=== PATIENT | female | born 1990 | race Caucasian/White ===

== ENCOUNTER 2017-11-25 10:58 | Emergency (ER) | payer MEDICAID ==
[~2017-11-25] VITALS: Ht 172.7 cm; Wt 96.9 kg
[~2017-11-25 10:58] MED LIST: IBUP-1573 PO
[2017-11-25] MEDS ORDERED: TETanus/Pertussis (Acell)/Diphther VAC/PF (Tdap-Adult) 0.5ml syringe IM ONE (11:50)
[2017-11-25] MEDS ORDERED: DOXY100C43 PO (13:00)
[2017-11-25] MEDS ORDERED: CEPH500C2 PO (13:00)
[2017-11-25 13:20] VITALS: BP 116/70
== END 2017-11-25 13:26 | disposition home or self-care (01) ==
LOC: ER 10:59
DX: L03.115 Cellulitis of right lower limb (principal); G89.29 Other chronic pain; Z90.49 Acquired absence of other specified parts of digestive tract; Z88.0 Allergy status to penicillin; Z88.8 Allergy status to other drugs, medicaments and biological substances; Z79.899 Other long term (current) drug therapy; Z56.0 Unemployment, unspecified
CPT/HCPCS: 73630; 90471; 90715; 99284

== ENCOUNTER 2019-08-02 11:44 | Emergency (ER) | payer MEDICAID ==
[~2019-08-02] VITALS: Ht 172.7 cm; Wt 105.0 kg
[2019-08-02] MEDS ORDERED: acetaminophen 325mg tablet PO ONE (12:50)
[2019-08-02 13:17] LABS: BASOPHILS # (AUTO) 0.1 X10'3 (0-0.2); BASOPHILS % (AUTO) 0.4 % (0-1); EOSINOPHILS # (AUTO) 0.1 X10'3 (0-0.9); EOSINOPHILS % (AUTO) 0.6 % (0-6); HEMATOCRIT 36.8 % (35.0-45.0); HEMOGLOBIN 12.2 g/dl (12.0-16.0); LYMPHOCYTES # (AUTO) 2.1 X10'3 (1.1-4.8); LYMPHOCYTES % (AUTO) 10.7 % (21-51); MEAN CORPUSCULAR HEMOGLOBIN 30.5 PG (27.0-31.0); MEAN CORPUSCULAR HGB CONC 33.2 g/dL (33.0-36.5); MEAN PLATELET VOLUME 7.8 FL (7.4-10.4); MONOCYTES # (AUTO) 1.1 X10'3 (0-0.9); MONOCYTES % (AUTO) 5.6 % (2-12); NEUTROPHILS # (AUTO) 15.9 X10'3 (1.8-7.7); NEUTROPHILS % (AUTO) 82.7 % (42-75); PLATELET COUNT 255 X10'3 (140-440); RED CELL DISTRIBUTION WIDTH 13.5 % (11.5-14.5); WHITE BLOOD COUNT 19.2 X10'3 (4.5-11.0)
[2019-08-02 13:48] LABS: ALANINE AMINOTRANSFERASE 18 U/L (12-78); ALBUMIN 2.5 G/DL (3.4-5.0); ALBUMIN/GLOBULIN RATIO 0.6 (1.1-1.5); ALKALINE PHOSPHATASE 82 IU/L (46-116); ANION GAP 10 (8-16); ASPARTATE AMINO TRANSFERASE 15 U/L (10-37); BILIRUBIN,TOTAL 0.4 MG/DL (0.1-1.0); BLOOD UREA NITROGEN 9 MG/DL (7-18); BUN/CREATININE RATIO 15.5 (6.6-38.0); CALCIUM 8.4 MG/DL (8.5-10.1); CHLORIDE 106 MMOL/L (99-107); CREATININE 0.58 MG/DL (0.40-0.90); GLUCOSE 116 MG/DL (70-104); SODIUM 138 MMOL/L (135-145); TOTAL PROTEIN 6.5 G/DL (6.4-8.2); eGFR > 90 ML/MIN
[2019-08-02 14:05] LABS: CLARITY,URINE SLIGHTLY CLOUDY (Clear); COLOR,URINE YELLOW (Yellow); GLUCOSE, URINE NEGATIVE (Neg); KETONES,URINE NEGATIVE (Neg); LEUKOCYTE ESTERASE ,URINE NEGATIVE (Neg); NITRITES, URINE NEGATIVE (Neg); OCCULT BLOOD,URINE NEGATIVE (Neg); PH,URINE 7.5 (4.8-8.0); PROTEIN,URINE NEGATIVE (Neg); UROBILINOGEN,URINE 0.2 E.U/dL (0.2-1.0)
[2019-08-02 14:06] LABS: URINE HCG POSITIVE (NEG)
[2019-08-02 14:08] LABS: UA COLLECTION TYPE CLN CATCH MIDSTREAM
[2019-08-02 14:12] LABS: SQUAMOUS EPITHELIAL CELL,UR MANY /LPF (FEW)
[2019-08-02 14:15] LABS: AMORPHOUS PHOSPHATES 3+
[2019-08-02 14:16] LABS: BACTERIA,URINE 2+ /HPF (Neg); RBC,URINE 0-2 /HPF (0-2); WBC,URINE 0-4 /HPF (0-4)
--- NOTE | 2019-08-02 18:28 | NUR ---
Patient back from MRI
[2019-08-02] MEDS ORDERED: CefTRIAXone/D5W-Rocephin 1gm 50 ML IV ONE (18:50)
[2019-08-02] MEDS ORDERED: morphine 4 MG/ML inj SYRINge IV ONE ×2 (19:50→20:40)
[2019-08-02 21:26] LABS: GLUCOSE,SYNOVIAL FLUID 10 MG/DL; TOTAL PROTEIN,SYNOVIAL FLUID 4.3 GM/DL
[2019-08-02 21:51] LABS: APPEARANCE,SYNOVIAL FLUID CLOUDY; COLOR,SYNOVIAL FLUID YELLOW
[2019-08-02 21:52] LABS: SYN RBC 50 /CU MM (0); SYN WBC 50075 /CU MM (0-200); SYNOVIAL FLUID CRYSTALS QT NO CRYSTALS SEEN
[2019-08-02 22:04] LABS: LYMPHOCYTES,SYNOVIAL FLUID 10 % (0-75); MONOCYTES,SYNOVIAL FLUID 2 % (0-0); NEUTROPHILS,SYNOVIAL FLUID 88 % (0-25)
[2019-08-02 23:10] VITALS: BP 109/47
== END 2019-08-03 00:22 | disposition short-term general hospital (02) ==
LOC: ER 11:44
DX: O26.892 Other specified pregnancy related conditions, second trimester (principal); M25.552 Pain in left hip; M00.9 Pyogenic arthritis, unspecified; G89.29 Other chronic pain; Z90.49 Acquired absence of other specified parts of digestive tract; Z56.0 Unemployment, unspecified; Z88.0 Allergy status to penicillin; Z91.048 Other nonmedicinal substance allergy status; Z79.899 Other long term (current) drug therapy; Z3A.22 22 weeks gestation of pregnancy
CPT/HCPCS: 20610; 36415; 73721; 80053; 81001; 81025; 82945; 83605; 84145; 84157; 85025; 85651; 86140; 87070; 87075; 87102; 89051; 89060; 96365; 96375; 96376; 99285; J0696; J2270

== ENCOUNTER 2024-12-25 03:27 | Inpatient (IN) | payer MEDICAID ==
[~2024-12-25] VITALS: Ht 157.5 cm; Wt 95.4 kg
--- NOTE | 2024-12-25 04:00 | Physician Documentation ---
History of Present Illness ~ Chief Complaint: Abscess Stated Complaint: LEG INFECTION Time Seen by MD: 03:59 Primary Medical Doctor: Dr. Robledo HPI Patient presents to the emergency room with chronic wound to her posterior left lower extremity that has been going on for the past two years that has gotten worse over the past week. She tried outpatient antibiotics from [facility] but states it only continues to get worse. Tetanus Within 5 Years: Yes Medication Reconciliation Allergies: Coded Allergies: Penicillins (Verified Allergy, Unknown, 08/02/19) adhesive tape (Verified Allergy, Unknown, 02/17/14) Scheduled PRN [Ibuprofen 600], MG PO Q6H PRN for pain, (Reported) Discontinued Medications Ibuprofen (Ibuprofen), 600 MG PO Q6H Discontinued Reason: Other Past Medical History Past Medical History: Chronic Back Pain Past Surgical History: cholecystectomy Alcohol Use: None Drug Use: none Lives In: Home Occupation: unemployed Review of Systems ROS All review of systems negative except as per HPI Physical Exam Vital Signs: Temperature: 98.0, Source: Oral, Heart Rate: 84, Respiratory Rate: 14, BP: 114/56, Pulse Oximetry: 94 General Appearance General: Patient is awake, alert, oriented x4 in no acute distress Head: Normocephalic and atraumatic. Eyes: Conjunctival normal. EOMI. PERRL. ENT: Mucous membranes moist. Neck: Supple, trachea is midline. Chest: Clear to auscultation bilaterally without rales, rhonchi, or wheezes. There is no accessory muscle use or retractions. Cardiac: RRR without murmurs, gallops, or rubs. Extremities: 20 cm x 10 cm ulcer covered with purulent drainage and foul odor behind right lower extremity Progress Results/Orders Results/Orders Orders - ALFONSO COLBERT MD Culture Blood (12/25/24 04:02) Chest,Single View (12/25/24 04:22) Page Hospitalist (12/25/24 05:27) Fill Out Med Reconciliation (12/25/24 05:27) Ct Lower Extremity (12/25/24 05:54) Completed Orders - ALFONSO COLBERT MD Cbc/Diff (12/25/24 04:02) MG (12/25/24 04:02) Chest,Single View (12/25/24 04:22) Procalcitonin (12/25/24 04:02) BMP (12/25/24 04:02) Lacticsepsis (12/25/24 04:02) Ceftriaxone/Q8b-Cpcixket 1gm (Rocephin 1 (12/25/24 04:05) Normal Saline 1000ml (0.9% Sodium Chlori (12/25/24 04:05) Morphine 4mg/Ml Inj. (Morphine Inj.) (12/25/24 04:45) Ondansetron Inj. (Zofran 4mg/2ml Vial) (12/25/24 04:45) ESR (12/25/24 04:50) C-Reactive Protein (12/25/24 04:50) Potassium Cl 40meq/1/2ns 520ml (Potassiu (12/25/24 08:00) Potassium Cl Sr Tablet (K-Dur Tablet) (12/25/24 05:30) Iohexol 300mg/Ml 100ml Inj. (Omnipaque-3 (12/25/24 05:38) Ct Lower Extremity (12/25/24 05:54) Vital Signs 12/25/24 12/25/24 12/25/24 12/25/24 03:30 04:01 04:02 05:50 Temp 98.0 Pulse 84 83 90 Resp 14 19 B/P (MAP) 114/56 106/49 (68) 153/72 (99) Pulse Ox 94 99 90 Laboratory Tests Test 12/25/24 04:41 12/25/24 04:59 White Blood Count 12.0 H Red Blood Count 4.27 Hemoglobin 11.5 L Hematocrit 33.9 L Mean Corpuscular Volume 79.5 Mean Corpuscular Hemoglobin 27.0 Mean Corpuscular Hemoglobin Concent 33.9 Red Cell Distribution Width 15.1 H Platelet Count 385 Mean Platelet Volume 6.6 L Neutrophils (%) (Auto) 71.8 Lymphocytes (%) (Auto) 14.7 L Monocytes (%) (Auto) 10.1 Eosinophils (%) (Auto) 2.4 Basophils (%) (Auto) 1.0 Neutrophils # (Auto) 8.6 H Lymphocytes # (Auto) 1.8 Monocytes # (Auto) 1.2 H Eosinophils # (Auto) 0.3 Basophils # (Auto) 0.1 CBC Comment Erythrocyte Sedimentation Rate 82 H Sodium Level 135 Potassium Level 2.5 *L Chloride Level 98 L Carbon Dioxide Level 21.7 L Anion Gap 15 Blood Urea Nitrogen 33 H Creatinine 1.67 H Estimated GFR/1.73 m2 35 BUN/Creatinine Ratio 19.8 Glucose Level 98 Calcium Level 8.9 Magnesium Level 2.5 H C-Reactive Protein 10.07 H Albumin 2.6 L Procalcitonin 0.05 Chemistry Comments Lactic Acid Level 1.3 Microbiology Date/Time Source Procedure Growth Status 12/25/24 04:38 Blood Iv Draw Blood Culture - Preliminary NEGATIVE (LESS THAN 24 HOURS) Resulted Medical Decision Making Findings Patient presents to the emergency room with infection to her right lower extremity as per HPI. Differentials include but are not limited to cellulitis, abscess, nonhealing wound, sepsis, electrolyte disturbances, dehydration therefore emergent labs and imaging indicated. Emergently low potassium along with evidence of acute kidney injury that has began feeling outpatient treatment patient would benefit from admission. Potassium supplementation and IV fluids has been initiated as well as antibiotics. Dr. Colbert handed this patient's care over to me, Dr. Garcia and requested I consult orthopedics for consultation. 9:30 a.m.: Case discussed with Dr. Higuera. Dr. Higuera recommends consulting Wound Care and if further surgical consultation is needed to give him a call. 9:45 a.m.: Page sent to hospitalist to discuss the above. Departure Admitted to Inpatient Unit: yes, to hospitalist Impression: Primary Impression: Hypokalemia Additional Impressions: Acute kidney failure Wound infection Condition: Guarded Referrals: NO PRIMARY CARE PROVIDER (PCP) Signature Scribe Signature: No scribe Attestation: The note accurately reflects work and decisions made by me.Alfonso Colbert MD 12/25/24 05:47 ALFONSO COLBERT MD Dec 25, 2024 04:00 SRINIVASA GARCIA MD Dec 25, 2024 10:32
[2024-12-25] MEDS ORDERED: vancomycin inj 1,000 MG in normal saline 250ml IV soln 250 ML IV ONE (04:05)
--- NOTE | 2024-12-25 04:33 | RADIOLOGY REPORT ---
CHEST RADIOGRAPH Indication: SEPSIS Technique: Single frontal view of the chest was obtained COMPARISON: None FINDINGS: Lines and Tubes: None Lungs: Clear Pleura: No effusion. No pneumothorax. Cardiomediastinal contours: Unremarkable Bones: Unremarkable IMPRESSION: 1. No acute disease.
[2024-12-25 04:57] LABS: MEAN PLATELET VOLUME 6.6 FL (7.4-10.4); RED CELL DISTRIBUTION WIDTH 15.1 % (11.5-14.5)
[2024-12-25] MEDS: morphine 4 MG/ML inj SYRINge IV ONE (05:04)
[2024-12-25] MEDS: normal saline 1000ml 1,000 ML IV ONE (05:06)
[2024-12-25 05:23] LABS: CREATININE 1.67 MG/DL (0.40-0.90); TOTAL CARBON DIOXIDE 21.7 MMOL/L (24-32); eGFR 35 ML/MIN
[2024-12-25] MEDS ORDERED: iohexol 300mg/ml 100ml inj. ONE (05:38)
[2024-12-25] MEDS: CefTRIAXone/D5W-Rocephin 1gm 50 ML IV ONE (05:38)
[2024-12-25] MEDS: potassium Cl 20 mEq SR tablet PO ONE (05:42)
[2024-12-25] MEDS: ondansetron/PF 4mg/2ml inj IV ONE (05:45)
[2024-12-25] MEDS ORDERED: magnesium sulf-water 4G/100mL 100 ML IV PRN (06:00)
[2024-12-25] MEDS ORDERED: ondansetron/PF 4mg/2ml inj IV PRN (06:00)
[2024-12-25] MEDS ORDERED: potassium Cl 40MEQ/1/2NS 520ml 520 ML IV PRN (06:00)
[2024-12-25] MEDS ORDERED: magnesium Cl slow-release 64mg tablet PO PRN (06:00)
[2024-12-25] MEDS ORDERED: magnesium sulf-water 2g/50mL 50 ML IV PRN (06:00)
[2024-12-25] MEDS ORDERED: mag hydrox/Alum hydrox/simeth 30ml oral suspension PO PRN (06:00)
[2024-12-25] MEDS ORDERED: magnesium hydroxide 30ml (MOM) UD suspension PO PRN (06:00)
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
[2024-12-25] MEDS ORDERED: cefepime 2g/NS 100ml ADVANTAGE 100 ML IV SCH (06:25)
--- NOTE | 2024-12-25 07:07 | RADIOLOGY REPORT ---
INDICATION: Infection, lt leg COMPARISON: None TECHNIQUE: CT of the left lower extremity was performed without contrast. Volume transverse images we re obtained and reconstructed in multiple planes using bone and soft tissue algorithms. Radiation Dose Information: CT Dose: CTDI volume is 14.38 mGy. Dose-length product is 1484.19 mGy*cm FINDINGS: The alignment is normal. The joint spaces are normal. There is no fracture, dislocation or aggressive osseous lesion. There is no joint effusion. Abnormally enlarged left inguinal lymph nodes measure up to 3.5 x 2.2 cm. Extensive tissue irregulari ty within the anterolateral distal left leg. Diffuse soft tissue swelling and edema throughout the lo wer leg. No discrete fluid collection to suggest abscess formation. IMPRESSION: 1. Soft tissue irregularity consistent with ulceration of the anterolateral distal left lower leg wit h associated diffuse soft tissue swelling and edema. No discrete fluid collection to suggest abscess formation. 2. Left inguinal lymphadenopathy. 3. All CT scans at this medical facility are performed using dose modulation techniques as appropriat e to a performed exam including the following:Automated exposure control was utilized; adjustment of the MA and/or KV according to patient size; and use of iterative reconstruction technique.
[2024-12-25] MEDS: HYDROcodone/acetaminophen 5mg/325mg tablet PO PRN (07:25)
[2024-12-25] MEDS: CEFEPIME 2gm in D5W 50mL 50 ML IV SCH (07:27)
[2024-12-25] MEDS: docusate sod 100mg capsule PO SCH (07:29)
[2024-12-25] MEDS: normal saline 1000ml 1,000 ML IV SCH (07:38)
[2024-12-25] MEDS: K and/or MAG REPLACEMENT MC SCH (07:41)
[2024-12-25 08:27] LABS: CREATININE 1.59 MG/DL (0.40-0.90); TOTAL CARBON DIOXIDE 22.0 MMOL/L (24-32); eCRCL 39 ML/MIN; eGFR 37 ML/MIN
[2024-12-25] MEDS: vancomycin/NS 1 GM ADD-VANTAGE 250 ML X 1 DOSE IV SCH (08:47)
[2024-12-25] MEDS: ringers solution, lacted 1,000 ML IV ONE (08:47)
[2024-12-25] MEDS: potassium Cl 40MEQ/1/2NS 520ml 520 ML IV SCH (08:48)
[2024-12-25 09:01] LABS: LEUKOCYTE ESTERASE ,URINE NEGATIVE (Neg); NITRITES, URINE NEGATIVE (Neg); OCCULT BLOOD,URINE NEGATIVE (Neg)
[2024-12-25 09:17] LABS: UA COLLECTION TYPE CLN CATCH MIDSTREAM
[2024-12-25] MEDS ORDERED: IBUPROFEN PO (09:23)
[2024-12-25 09:26] LABS: SQUAMOUS EPITHELIAL CELL,UR MANY /LPF (FEW)
[2024-12-25 09:28] LABS: MUCUS STRANDS FEW /LPF (Neg)
[2024-12-25] MEDS: Potassium Cl inj 40 MEQ in normal saline 500ml IV soln 500 ML IV STA (09:30)
[2024-12-25 09:39] LABS: CREATININE,URINE RANDOM 112.0 MG/DL
[2024-12-25] MEDS: ceFAZolin 2gm/dext,iso 50mL 50 ML IV SCH (09:44)
[2024-12-25] MEDS: ringers solution, lacted 1,000 ML IV SCH (09:46)
[2024-12-25 09:58] LABS: URINE AMPHETAMINE SCREEN POSITIVE (Neg); URINE BARBITUATE SCREEN NEGATIVE (Neg); URINE BENZODIAZEPINES SCREEN NEGATIVE (Neg); URINE CANNABINOID SCREEN NEGATIVE (Neg); URINE COCAINE SCREEN NEGATIVE (Neg); URINE METHADONE SCREEN NEGATIVE (Neg); URINE OPIATE SCREEN POSITIVE (Neg); URINE PHENCYCLIDINE SCREEN NEGATIVE (Neg)
[2024-12-25 09:59] LABS: TOTAL PROTEIN,URINE RANDOM 69.0 MG/DL; UA UREA RANDOM 725.0 MG/DL
[2024-12-25 10:00] VITALS: BP 107/57; PULSE 82; RESP 18; TEMP 98.1; O2SAT 99
[2024-12-25 10:03] LABS: URINE HCG NEGATIVE (NEG)
[2024-12-25] MEDS: potassium Cl 20 mEq SR tablet PO PRN (14:04)
--- NOTE | 2024-12-25 14:20 | VASCULAR REPORT ---
Indication: Nonhealing wound of the left lower extremity Technique: Real- time ultrasound images of the left lower extremity with grayscale, color, and spect ral wave Doppler. Comparison: CT CT LOWER EXTREMITY on DOS: 12/25/24 Findings: Monophasic waveforms in the left STICKER HAND, SFA, popliteal, anterior tibial, posterior tibial arteries Peak systolic velocities are as follows (in cm/s): Left: Common femoral artery: 205 Profunda femoris: 166 Proximal superficial femoral: 168 Mid superficial femoral artery: 142 Distal superficial femoral artery: 170 Popliteal artery: 138 Posterior tibial artery: 94 Anterior tibial artery: 110 Impression: Diffuse left lower extremity monophasic waveforms which suggesting aortoiliac inflow disease/ moderat e to advanced peripheral arterial disease. Recommend CT angiogram of the aorta and lower extremities to evaluate.
--- NOTE | 2024-12-25 14:21 | VASCULAR REPORT ---
Technique: Real-time ultrasound imaging, with color Doppler and compression of the left common femor al vein, femoral vein, greater saphenous vein, and popliteal vein. Indication: Pain, nonhealing wound Comparison: CT CT LOWER EXTREMITY on DOS: 12/25/24 Findings: There is normal compressibility and flow augmentation in all of the imaged deep veins. There are no f illing defects. Enlarged left inguinal lymph node that is hypoechoic measuring 2.1 x 1.4 cm Impression: No evidence of DVT in the left lower extremity. Abnormal left inguinal lymphadenopathy.
[2024-12-25] MEDS: heparin, porcine 5000 units/ml vial SQ SCH (16:56)
[2024-12-25 18:00] VITALS: BP 122/62; PULSE 93; RESP 19; TEMP 99; O2SAT 98
[2024-12-25] MEDS: potassium Cl 20 mEq SR tablet PO STA (19:10)
--- NOTE | 2024-12-25 19:42 | RADIOLOGY REPORT ---
CLINICAL HISTORY: JANIS TECHNIQUE: Complete ultrasound exam of the kidneys and bladder was performed. COMPARISON: None FINDINGS: The right kidney has normal echogenicity and measures 10.9 X 5.0 X 5.6 cm. There is no focal parenchy mal abnormality or evidence for stone. There is no hydronephrosis. The left kidney has normal echogenicity and measures 10.6 X 4.0 X 4.8 cm. There is no focal parenchy mal abnormality or evidence for stone. There is no hydronephrosis. The bladder is distended with a bladder volume of 638 ml. IMPRESSION: NO SIGNIFICANT SONOGRAPHIC ABNORMALITY OF THE KIDNEYS.
[2024-12-25 22:00] VITALS: BP 108/53; PULSE 94; RESP 15; TEMP 98.2; O2SAT 96
[2024-12-26 00:25] LABS: CREATININE 1.01 MG/DL (0.40-0.90); TOTAL CARBON DIOXIDE 22.1 MMOL/L (24-32); eCRCL 62 ML/MIN; eGFR 63 ML/MIN
[2024-12-26] MEDS: potassium Cl 20 mEq SR tablet PO PRN (01:03)
[2024-12-26 06:00] VITALS: BP 102/46; PULSE 95; RESP 20; TEMP 98.3; O2SAT 94
[2024-12-26 06:17] LABS: MEAN PLATELET VOLUME 6.7 FL (7.4-10.4); RED CELL DISTRIBUTION WIDTH 15.8 % (11.5-14.5)
[2024-12-26 06:19] LABS: CREATININE 1.03 MG/DL (0.40-0.90); TOTAL CARBON DIOXIDE 20.8 MMOL/L (24-32); eCRCL 61 ML/MIN; eGFR 61 ML/MIN
[2024-12-26] MEDS: potassium Cl 20 mEq SR tablet PO SCH (08:56)
[2024-12-26 10:00] VITALS: BP 114/58; PULSE 97; RESP 17; TEMP 97.7; O2SAT 95
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
[2024-12-26] MEDS: CEFEPIME 2gm in D5W 50mL 50 ML IV SCH (11:05)
[2024-12-26 18:00] VITALS: BP 104/65; PULSE 89; RESP 18; TEMP 98.3; O2SAT 97
[2024-12-26] MEDS: JUVEN Smoothie Arginine/Glut./Ca2+Bmb (Juven 19.3pkt) 240ml cup PO SCH (18:30)
[2024-12-26] MEDS: VANCOMYCIN LEVEL IV ONE (19:30)
[2024-12-26 20:00] VITALS: RESP 16; O2SAT 96
[2024-12-26 22:00] VITALS: BP 127/75; PULSE 88; RESP 16; TEMP 97.9; O2SAT 96
[2024-12-27] VITALS (14 sets, daily range): BP systolic 114–159; BP diastolic 58–91; PULSE 89–106; RESP 11–16; TEMP 97.9–98; O2SAT 96–100
[2024-12-27 06:35] LABS: CREATININE 0.69 MG/DL (0.40-0.90); TOTAL CARBON DIOXIDE 19.8 MMOL/L (24-32); eCRCL 91 ML/MIN; eGFR > 90 ML/MIN
[2024-12-27] MEDS: levoFLOXACIN-Levaquin 750MG/D5 150 ML IV ONE (09:51)
[2024-12-27 11:10] LABS: MEAN PLATELET VOLUME 6.6 FL (7.4-10.4); RED CELL DISTRIBUTION WIDTH 15.6 % (11.5-14.5)
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
[2024-12-27] MEDS ORDERED: BUPIVAcaine/PF 2.5mg/ml (0.25%) 10ml vial ONE (13:19)
[2024-12-27] MEDS ORDERED: fentaNYL/PF 50MCG/1 ML 2ML syringe ONE (13:57)
[2024-12-27] MEDS ORDERED: propofol inj 20 ML IV ONE (13:58)
[2024-12-27] MEDS ORDERED: vancomycin 1,000mg inj ONE (14:24)
[2024-12-27] MEDS ORDERED: morphine 4 MG/ML inj SYRINge ONE (14:37)
[2024-12-27] MEDS ORDERED: ringers solution, lacted 1,000 ML IV SCH (14:50)
[2024-12-27] MEDS ORDERED: HYDROmorphone/PF 0.2 MG/ML SYRINGE IV PRN (14:50)
[2024-12-27] MEDS ORDERED: hydrALAZINE 20mg/ml inj. IV PRN (14:50)
[2024-12-27] MEDS ORDERED: labetalol 20mg/4ml (5mg/ml) syringe IV PRN (14:50)
[2024-12-27] MEDS ORDERED: ondansetron/PF 4mg/2ml inj IV PRN (14:50)
--- NOTE | 2024-12-27 14:54 | CONSULTATION REPORT ---
History of Present Illness Providers to CC ~ Reason for Admit\Admit Dx: Right lower extremity wound Refering MD: Dr. Robledo History of Present Illness History of present illness: 34-year-old female with a long history of a chronic ulceration involving her left lower extremity that presented to the hospital emergency room was admitted for wound care evaluation and treatment. I was consulted today regarding the need for debridement of the wound for with potential abscess formation. Patient has had extensive treatment in the past at [facility]. Long history of IV and. Smoking methamphetamine abuse. Examination: Extremity examination is positive for the left lower extremity with an ulceration that measures 3 in x 5 in was that is on the anterior medial aspect proximal to her ankle. Has a large skin loss of the posterior calf posterior medially that measures 5 in by 6 in. Patient demonstrates full function of her ankle and foot and knee without significant pain to either active or passive range of motion. CT scan confirms skin loss and ulceration but with no evidence of abscess formation. Assessment: Necrotic skin loss with chronic ulceration involving the distal leg [id number] family outpatient and inpatient wound care. Need for debridement these to be evaluated in the operating room as the patient is unable to tolerate dressing changes. Plan: The OR on an urgent basis for irrigation debridement and dressing change to her left lower extremity. Independent patient was informed of the indications risks benefits and significant limitations of the procedure. I obtained informed consent. Allergies: Coded Allergies: Penicillins (Verified Allergy, Unknown, 08/02/19) adhesive tape (Verified Allergy, Unknown, 02/17/14) latex (Verified Allergy, Unknown, 12/27/24) Home Medications Home Medications Active Reported [Ibuprofen 600] Mg PO Q6H PRN Past Family History Family History: FH: breast cancer (her aunt breast cancer) FH: kidney cancer (grandfather ) FHx: heart disease (grandfather and grandmother) Physical Exam Last Vital Signs Recorded: Temperature: 97.9, Source: Oral, Heart Rate: 94, Respiratory Rate: 13, BP: 139/74, Pulse Oximetry: 97, Weight: 95.400 Results Diagram Lab Result Diagram: 12/27/24 1044 12/27/24 0519 SONA SORENSEN MD Dec 27, 2024 14:54
[2024-12-27] MEDS: morphine 4 MG/ML inj SYRINge ONE (14:58)
[2024-12-27] MEDS: morphine 4 MG/ML inj SYRINge IV PRN (14:59)
--- NOTE | 2024-12-27 15:00 | OPERATIVE REPORT ---
Operative Report Providers to CC ~ Date of Procedure: Dec 27, 2024 Pre-Operative Diagnosis: Cellulitis Post-Operative Diagnosis Chronic ulceration of the skin lesions left lower extremity undetermined etiology. No active abscess formation. Procedure Performed Evaluation of the wound with debridement of any necrotic tissue of the anterior lateral and posterior medial skin loss ulcerations. No evidence of abscess formation. Surgeon: Thor Sorensen MD Sample Distributor None Anesthesiologist: Thom Marie Type of Anesthesia: General Findings: Patient had no evidence of abscess formation there was some necrotic tissue that was debrided with curette and scrub brush. Good vascularized proud tissue was appreciated throughout 90% of the wound base. Complications None Prosthetics\Implants used: None Estimated Blood Loss: Less than 50 cc Specimen Removed: None Description of Procedure: Patient was taken to the operating room after I obtained informed consent and signed her left lower extremity once in the operating room she was placed in the OR table in supine position given general anesthetic surgical time-out was taken per protocol and the case was begun. No tourniquet was used for this procedure. After the leg was prepped and draped in usual sterile orthopaedic fashion Wound was inspected. After close inspection there was no evidence of a deep space infection or abscess. Skin edges were debrided and areas of any necrotic material was scraped and debrided as well. Both posterior medial and anterior lateral wounds were debrided in this fashion. Wet-to-dry dressing was applied and held in position with Kerlix and an Renan wrap. Patient was now extubated and taken to the recovery room in stable condition there were no apparent perioperative complications Counts repoted as correct: Yes THOR SORENSEN MD Dec 27, 2024 14:59
[2024-12-27] MEDS: HYDROmorphone/PF 0.2 MG/ML SYRINGE IV PRN (15:02)
[2024-12-27] MEDS: acetaminophen 1,000mg/100ml IV 100 ML IV PRN (15:18)
--- NOTE | 2024-12-28 06:34 | DISCHARGE SUMMARY ---
Discharge Summary Providers to CC ~ Discharge Summary Admission Diagnosis: Cellulitis Hospital Course DATE OF ADMISSION: 12/25/24 DATE OF DISCHARGE: 12/27/24 Discharge Diagnosis\Comment: Cellulitis, LLE Nonhealing ulcer, failed outpatient therapy Methamphetamine abuse Fentanyl abuse Prerenal JANIS 2/2 dehydration/vasomotor nephropathy Hypokalemia Metabolic acidosis Left AMA Operations\Procedures: Debridement of any necrotic tissue of the anterior lateral and posterior medial skin loss ulcerations Consultants: Orthopedic surgeon Thor Klein Complications: Left AMA Condition on DC: Unstable Discharge Summary: Patient is not medically cleared for discharge. Patient has multiple history of leaving AMA from outside hospitals. Patient left AMA this hospitalization despite explaining risks associated with leaving AMA. *Problems/Diagnosis: (1) Wound infection Status: Acute (2) Hypokalemia Status: Acute Total Time Spent on D/C: Up to 30 Minutes Date of Service: Dec 27, 2024 Billing Provider: RICARDO TA Common Visit Codes: NOT BILLABLE RICARDO TA Dec 28, 2024 06:34
[2024-12-28] MEDS ORDERED: levoFLOXACIN-Levaquin 750MG/D5 150 ML IV SCH (08:00)
== END 2024-12-27 20:12 | disposition left against medical advice (07) | DRG 383 ==
LOC: ER 03:27 → ED HOLD 06:04 → UNDOADMIN 06:04 → ED HOLD 07:51 → EDBEDREQ 08:48 → ED HOLD 09:58 → ORTHO 4S 09:58
PROVIDERS: ADMIT Internal Medicine Pulmonary Disease; ATTEND Nurse Practitioner Family
PROC: 0JBP0ZZ Excision of Left Lower Leg Subcutaneous Tissue and Fascia, Open Approach (ICD-10-PCS; principal; 2024-12-27 13:48)
DX: L03.116 Cellulitis of left lower limb (principal); N17.0 Acute kidney failure with tubular necrosis; E87.20 Acidosis, unspecified; I96 Gangrene, not elsewhere classified; S81.802A Unspecified open wound, left lower leg, initial encounter; L97.828 Non-pressure chronic ulcer of other part of left lower leg with other specified severity; E86.0 Dehydration; F11.10 Opioid abuse, uncomplicated; E87.6 Hypokalemia; F15.10 Other stimulant abuse, uncomplicated; Z53.21 Procedure and treatment not carried out due to patient leaving prior to being seen by health care provider; X58.XXXA Exposure to other specified factors, initial encounter; Y93.89 Activity, other specified; Y92.89 Other specified places as the place of occurrence of the external cause; Y99.8 Other external cause status; Z88.0 Allergy status to penicillin; Z91.09 Other allergy status, other than to drugs and biological substances
CPT/HCPCS: 36415; 71045; 73700; 76770; 80048; 80053; 80202; 80305; 81001; 81025; 82088; 82570; 82948; 83605; 83735; 84132; 84133; 84145; 84156; 84244; 84300; 84540; 85025; 85651; 86038; 86140; 87040; 87070; 87075; 87077; 87081; 87186; 87207; 93926; 93971; 96365; 96367; 96375; 97116; 97161; 99285; A4618; A6196; A6224; A6253; A6446; A6449; A7000; G0378; J0131; J0690; J0692; J0696; J1171; J1644; J1956; J2270; J2405; J2704; J3010; J3373; J3480; J3490; J7030; J7120; Q9967

== ENCOUNTER 2025-04-02 19:40 | Emergency (ER) | payer MEDICAID ==
[~2025-04-02] VITALS: Ht 172.7 cm; Wt 90.9 kg
[~2025-04-02 19:40] MED LIST changes: -IBUP-1573 PO; +IBUPROFEN PO
[2025-04-02 20:02] VITALS: BP 131/58; PULSE 92; RESP 16; TEMP 98; O2SAT 98
--- NOTE | 2025-04-02 21:35 | Physician Documentation ---
History of Present Illness ~ Chief Complaint: Wound Re-Check Stated Complaint: WOUND DRESSING CHANGE Time Seen by MD: 21:03 Primary Medical Doctor: JAYDEN HPI 35-year-old female presents to the ED requesting a wound care change. She states that her symptoms have improved and she is being followed by wound care and that her last visit was two days ago. Denies any increased symptoms rather she reports an improvement overall. States that her antibiotic regimen recently finished denies any fevers nausea vomiting increased pain or swelling Her primary reason for coming to the ED is to have her dressing replaced Day of Onset of Wound: Apr 02, 2025 Tetanus within 5 years?: No (unknown) Medication Reconciliation Allergies: Coded Allergies: Penicillins (Verified Allergy, Unknown, 08/02/19) adhesive tape (Verified Allergy, Unknown, 02/17/14) latex (Verified Allergy, Unknown, 12/27/24) Scheduled PRN [Ibuprofen 600], MG PO Q6H PRN for pain, (Reported) Past Medical History Past Medical History: Chronic Back Pain Past Surgical History: cholecystectomy Patient History: FH: breast cancer (her aunt breast cancer) FH: kidney cancer (grandfather ) FHx: heart disease (grandfather and grandmother) Alcohol Use: None Drug Use: none Lives In: Home Occupation: unemployed Review of Systems All Other Systems at this time: Reviewed and Negative ROS As stated above in the HPI, otherwise all systems are reviewed and negative. Physical Exam Vital Signs: Temperature: 98.0, Heart Rate: 92, Respiratory Rate: 16, BP: 131/58, Pulse Oximetry: 98, Weight: 90.910 Oxygen Flow Rate: 0 Physical Exam Extremities: LLE large 10 cm ulcer with notable slough, no drainage Neurologic: Oriented x4. Psychiatric: Normal mood and affect. Skin: Normal color, warm and dry. No edema, no ecchymosis. Progress Results/Orders Results/Orders Vital Signs 04/02/25 20:02 Temp 98.0 Pulse 92 Resp 16 B/P (MAP) 131/58 Pulse Ox 98 O2 Flow Rate 0 Medical Decision Making Additional information obtaine: old records Findings Nursing staff applied appropriate dressing to the patient's wound and I advised the patient to follow up with the wound care soon as possible for further treatment Differential Dx:Considerations: Include: Abscess, Cellulitis, Dressing change, Healing wound, Other Departure Disposition: HOME / SELF CARE / HOMELESS Impression: Primary Impression: Non-healing surgical wound Additional Impression: Wound infection Discharge Instructions: Abscess, Care After, Sutured Wound Care Referrals: NO PRIMARY CARE PROVIDER (PCP) Signature Scribe Signature: r Attestation: Scribed for Omar Medrano Review Trainer by Omar Langston NP . 04/02/25 23:18 OMAR MEDRANO NP Apr 02, 2025 21:35
== END 2025-04-02 22:21 | disposition home or self-care (01) ==
LOC: ER 19:41
DX: T81.89XA Other complications of procedures, not elsewhere classified, initial encounter (principal); L08.9 Local infection of the skin and subcutaneous tissue, unspecified; G89.29 Other chronic pain; Z88.0 Allergy status to penicillin; Z91.040 Latex allergy status; Z91.048 Other nonmedicinal substance allergy status; Z90.49 Acquired absence of other specified parts of digestive tract
CPT/HCPCS: 99282; A6258

== ENCOUNTER 2025-04-08 20:23 | Inpatient (IN) | payer MEDICAID ==
[~2025-04-08] VITALS: Ht 172.7 cm; Wt 110.9 kg
[2025-04-08 21:25] LABS: MEAN PLATELET VOLUME 6.7 FL (7.4-10.4); RED CELL DISTRIBUTION WIDTH 15.5 % (11.5-14.5)
[2025-04-08 21:37] LABS: CREATININE 0.89 MG/DL (0.40-0.90); TOTAL CARBON DIOXIDE 28.3 MMOL/L (24-32); eCRCL 89 ML/MIN; eGFR 72 ML/MIN
--- NOTE | 2025-04-08 23:35 | Physician Documentation ---
History of Present Illness ~ Chief Complaint: Wound Stated Complaint: L LEG WOUND Time Seen by MD: 00:44 Primary Medical Doctor: [facility] HPI This is a 35-year-old female with history of chronic left lower extremity wound who presents to the emergency department due to concern for worsening of the wound, patient reports she just finished a course of oral antibiotics and is followed by orthopedic surgeon Dr. Higuera. Patient reports no fever, chills, or other systemic symptoms. History as above reviewed with the patient Tetanus within 5 years?: No (unknown) Medication Reconciliation Allergies: Coded Allergies: adhesive tape (Verified Allergy, Unknown, 04/08/25) latex (Verified Allergy, Unknown, 04/08/25) Scheduled PRN [Ibuprofen 600], MG PO Q6H PRN for pain, (Reported) Past Medical History Past Medical History: Chronic Back Pain, *DERMATOLOGY* (Chronic wound to left lower extremity) Past Surgical History: cholecystectomy Patient History: FH: breast cancer (her aunt breast cancer) FH: kidney cancer (grandfather ) FHx: heart disease (grandfather and grandmother) Alcohol Use: None Drug Use: none Lives In: Home Occupation: unemployed Review of Systems ROS As stated above in the HPI, otherwise all systems are reviewed and negative. Physical Exam Vital Signs: Temperature: 98.1, Source: Oral, Heart Rate: 98, Respiratory Rate: 15, BP: 121/69, Pulse Oximetry: 97, Weight: 110.910 Oxygen Flow Rate: 0 Physical Exam General: Patient is awake, alert, oriented x4 in no acute distress Head: Normocephalic and atraumatic. Eyes: Conjunctival normal. EOMI. PERRL. ENT: Mucous membranes moist. Neck: Supple, trachea is midline. Chest: Clear to auscultation bilaterally without rales, rhonchi, or wheezes. There is no accessory muscle use or retractions. Cardiac: RRR without murmurs, gallops, or rubs. Extremities: Large chronic appearing ulceration with associated cellulitis noted to patient's left calf measuring a proximally 15 cm x 10 cm. Progress Results/Orders Results/Orders Vital Signs 04/08/25 20:28 Temp 98.1 Pulse 98 Resp 15 B/P (MAP) 121/69 Pulse Ox 97 O2 Flow Rate 0 Laboratory Tests Test 04/08/25 20:59 White Blood Count 9.6 Red Blood Count 4.46 Hemoglobin 11.3 L Hematocrit 35.1 Mean Corpuscular Volume 78.9 Mean Corpuscular Hemoglobin 25.3 L Mean Corpuscular Hemoglobin Concent 32.1 L Red Cell Distribution Width 15.5 H Platelet Count 416 Mean Platelet Volume 6.7 L Neutrophils (%) (Auto) 64.6 Lymphocytes (%) (Auto) 24.5 Monocytes (%) (Auto) 5.9 Eosinophils (%) (Auto) 4.1 Basophils (%) (Auto) 0.9 Neutrophils # (Auto) 6.2 Lymphocytes # (Auto) 2.4 Monocytes # (Auto) 0.6 Eosinophils # (Auto) 0.4 Basophils # (Auto) 0.1 CBC Comment Sodium Level 138 Potassium Level 3.8 Chloride Level 103 Carbon Dioxide Level 28.3 Anion Gap 7 L Blood Urea Nitrogen 20 H Creatinine 0.89 Estimated GFR/1.73 m2 72 BUN/Creatinine Ratio 22.5 H Glucose Level 115 H Lactic Acid Level 1.1 Calcium Level 8.6 Albumin 3.1 L Procalcitonin < 0.05 Chemistry Comments Microbiology Date/Time Source Procedure Growth Status 04/08/25 21:06 Blood Arm Left Blood Culture - Preliminary NEGATIVE (LESS THAN 24 HOURS) Resulted Medical Decision Making Additional information obtaine: N/A Findings Patient presented to the emergency room for evaluation of worsening chronic leg wound. Differentials include but are not limited to sepsis, cellulitis, abscess, vascular insufficiency. Vision has good movement he had not suspect vascular insufficiency. Patient reports that has went to significantly worsened in the past week despite antibiotics therefore we will admit for IV antibiotics and possible debridement Differential Dx:Considerations: Include: Abscess, Cellulitis, Dressing change, Healing wound Departure Admitted to Inpatient Unit: yes, to hospitalist Impression: Primary Impression: Wound cellulitis Condition: Guarded Referrals: NO PRIMARY CARE PROVIDER (PCP) Signature Scribe Signature: No scribe Attestation: The note accurately reflects work and decisions made by me.Alfonso Colbert MD 04/09/25 00:51 KINGA BURNS Apr 08, 2025 23:35 ALFONSO COLBERT MD Apr 09, 2025 00:51
[2025-04-09] MEDS: vancomycin inj 1,000 MG in normal saline 250ml IV soln 250 ML IV STA (00:51)
[2025-04-09] MEDS ORDERED: magnesium Cl slow-release 64mg tablet PO PRN (01:25)
[2025-04-09] MEDS ORDERED: potassium Cl 20 mEq SR tablet PO PRN (01:25)
[2025-04-09] MEDS ORDERED: potassium Cl 40MEQ/1/2NS 520ml 520 ML IV PRN (01:25)
[2025-04-09] MEDS ORDERED: magnesium sulf-water 4G/100mL 100 ML IV PRN (01:25)
[2025-04-09] MEDS ORDERED: magnesium sulf-water 2g/50mL 50 ML IV PRN (01:25)
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
[2025-04-09] MEDS ORDERED: vancomycin/NS 1 GM ADD-VANTAGE 250 ML IV ONE ×2 (02:40→02:55)
[2025-04-09] MEDS ORDERED: HYDROcodone/acetaminophen 5mg/325mg tablet PO PRN (02:40)
[2025-04-09] MEDS ORDERED: VANCOMYCIN 2GM/400ML H20 (PEG) 400 ML IV ONE (03:00)
[2025-04-09] MEDS: HYDROcodone/acetaminophen 5mg/325mg tablet PO ONE (03:01)
[2025-04-09] MEDS: vancomycin/NS 1 GM ADD-VANTAGE 250 ML IV ONE ×2 (03:18→05:29)
[2025-04-09] MEDS: piperacillin/tazo 4.5gm/100ml 100 ML IV SCH (03:41)
[2025-04-09] MEDS: ondansetron/PF 4mg/2ml inj IV PRN (03:49)
[2025-04-09] MEDS ORDERED: NO HOME MEDS (04:04)
[2025-04-09 05:10] VITALS: RESP 20
[2025-04-09] MEDS: normal saline 1000ml 1,000 ML IV SCH (05:28)
[2025-04-09 05:45] VITALS: BP 111/59; PULSE 92; RESP 20; TEMP 97.1; O2SAT 98
[2025-04-09 08:00] VITALS: RESP 20
[2025-04-09] MEDS: K and/or MAG REPLACEMENT MC SCH (08:00)
[2025-04-09 08:20] LABS: HCG SERUM QL NEGATIVE
[2025-04-09] MEDS: docusate sod 100mg capsule PO SCH (08:55)
[2025-04-09] MEDS: enoxaparin 40mg/0.4ml syringe SUBCUT SCH (08:56)
[2025-04-09] MEDS: HYDROcodone/acetaminophen 10/325mg tab PO PRN (09:58)
[2025-04-09] MEDS ORDERED: iohexol 350 MG/ML 50ML vial IV ONE (11:06)
--- NOTE | 2025-04-09 12:21 | VASCULAR REPORT ---
Left lower extremity venous duplex Clinical History: Pain, swelling Comparison: VASC VL VENOUS on DOS: 12/25/24 Technique: Duplex Doppler evaluation of the deep venous systems of left lower extremities from the common femoral veins to the popliteal veins including color Doppler and spectral/pulsed waveform analysis was performed. Findings: LEFT SIDE: The common femoral vein demonstrates appropriate compressibility and waveform variability. There is compressibility/patency of the great saphenous vein at the proximal thigh. The femoral vein demonstrates appropriate compressibility and waveform variability. The deep femoral vein demonstrates appropriate compressibility and waveform variability. The popliteal vein demonstrates appropriate compressibility and waveform variability. The calf vessels are not visualized due to overlying bandages. Nonspecific enlarged left inguinal lymph node measuring 1.4 x 3.5 cm Impression: No left femoropopliteal venous thrombosis. Nonspecific enlarged left inguinal lymph node measuring 1.4 x 3.5 cm
--- NOTE | 2025-04-09 12:24 | RADIOLOGY REPORT ---
EXAM: DI TIB/FIB 2 VWS CLINICAL INDICATION: LEFT LOWER EXT WOUND TO R/O OSTEO TECHNIQUE: DI TIB/FIB 2 VWS Comparison: None FINDINGS/IMPRESSION: There is no evidence of acute fracture or dislocation. The visualized joint space is well maintained. Diffuse soft tissue swelling. There is no radiopaque foreign body.
--- NOTE | 2025-04-09 12:58 | RADIOLOGY REPORT ---
EXAM: CT CTA ABDOMEN LOWER EXTR RUNOFF HISTORY: PVD Bilateral lower extremity COMPARISON: None TECHNIQUE: High resolution helical CT images of the abdomen, pelvis, and bilateral lower extremities were performed with 120 mL Omnipaque 350 IV contrast using CTA protocol. Sagittal and coronal reformatted images and 3-D MIP reconstructions were obtained. This CT exam was performed using one or more of the following dose reduction techniques: Automated exposure control, adjustment of the mA and/or kV according to patient size, or use of iterative reconstruction technique. CT Radiation Dose: CTDI volume is 15.54 mGy. Dose-length product is 2083.95 mGy*cm. FINDINGS: Abdomen: No aneurysmal dilatation, dissection, or significant stenosis in the abdominal aorta. The celiac trunk, SMA, and ANGELICA are patent. 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 Renals: There are single renal arteries bilaterally. No significant renal artery stenosis. Pelvis: No significant stenosis in the bilateral common, external, or internal iliac arteries. Right lower extremity: The common femoral artery, superficial femoral artery, popliteal artery, anterior and posterior tibial arteries, and peroneal artery are widely patent. There is 3-vessel runoff to the right ankle. Left lower extremity: The common femoral artery, superficial femoral artery, popliteal artery, anterior and posterior tibial arteries, and peroneal artery are widely patent. There is 3-vessel runoff to the left ankle. Miscellaneous: The heart is mildly enlarged. The liver may be diffusely fatty density. There is fecal retention in the colon. There is trace free fluid in the pelvis. The gallbladder is surgically absent. There are multiple subcentimeter nonobstructing right renal calculi. There are multiple enlarged lymph nodes in the left inguinal region. There are moderate right and small to moderate left knee effusions. There is edema of the bilateral lower legs, hqid-nchkwza-xvva-right. There are multiple open wounds and/or scarring of the left lower leg. No evidence of soft tissue abscess. IMPRESSION: 1. No significant arterial stenoses are identified in the abdomen, pelvis, or bilateral lower extremities. There is 3-vessel runoff to the bilateral ankles. 2. 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 3. Cardiomegaly. 4. Nonobstructing right nephrolithiasis. 5. Postoperative changes of cholecystectomy. 6. Fecal retention in the colon suggestive of constipation. 7. Trace free fluid in the pelvis, likely physiologic. 8. Multiple left lower leg open wounds versus skin scarring. Subcutaneous edema of the bilateral lower legs is greater on the left and may be due to cellulitis, venous stasis, mild CHF, or other etiology.
[2025-04-09] MEDS ORDERED: METH-603 PO (13:18)
[2025-04-09] MEDS ORDERED: HYDROmorphone 1mg tablet (1/2 of 2mg tablet) PO PRN (13:25)
[2025-04-09] MEDS: methadone 10mg tablet PO SCH (13:55)
[2025-04-09] MEDS: vancomycin/NS 1 GM ADD-VANTAGE 250 ML IV SCH (14:04)
[2025-04-09] MEDS ORDERED: VANCOmycin 1250MG/NS 250ml Bag 250 ML IV SCH (16:00)
[2025-04-09 18:00] VITALS: BP 100/50; PULSE 85; RESP 15; TEMP 97.7; O2SAT 98
--- NOTE | 2025-04-09 19:03 | PROGRESS NOTE ---
Daily Progress Note Providers to CC ~ Antibiotic Timeout Antibiotic Ordered?: Yes Subjective Patient was seen twice today in my visits. Care plan discussed with the patient's father and patient who is awake alert, All labs, diagnostic workup and discussed with patient All questions and queries answered to the best of my professional medical knowledge. We will continue with current antibiotic therapy and continue wound care treatment. I consulted Infectious Disease specialist Dr. Gay for this patient's case. Wound care team recommended surgical intervention so I left the message with Dr. Dominguez and requested surgical consultation. Somebody is helping patient in outpatient setting to find the housing. Patient's father feels that patient might need special plastic surgery. Patient do not want to go to [facility] as they do not respect her over there. In her last visit she left against medical advice in December 2024 from [facility]. Patient is currently on methadone for chronic opioid addiction . Nursing staff Annie feels patient needs stronger pain medications so Dilaudid ordered for pain control. substance abuse navigator consulted on this case and evaluated the patient. Continue to monitor patient's clinically. Objective Vital Signs Date Time Temp Pulse Resp B/P (MAP) Pulse Ox O2 Delivery O2 Flow Rate FiO2 04/09/25 14:56 16 04/09/25 08:00 Room Air 0.0 04/09/25 05:45 97.1 92 111/59 (76) 98 CTA ABDOMEN LOWER EXTR RUNOFF-IMPRESSION: 1. No significant arterial stenoses are identified in the abdomen, pelvis, or bilateral lower extremities. There is 3-vessel runoff to the bilateral ankles. 2. 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 3. Cardiomegaly. 4. Nonobstructing right nephrolithiasis. 5. Postoperative changes of cholecystectomy. 6. Fecal retention in the colon suggestive of constipation. 7. Trace free fluid in the pelvis, likely physiologic. 8. Multiple left lower leg open wounds versus skin scarring. Subcutaneous edema of the bilateral lower legs is greater on the left and may be due to cellulitis, venous stasis, mild CHF, or other etiology. Result Diagram: 04/08/25205804/08/252058 General-patient not in any acute distress, alert awake oriented, obese, chronically ill-appearing HEENT-atraumatic normocephalic, neck supple without elevated JVD, no thyromegaly or carotid bruit. No lymphadenopathy bilaterally. Eyes-no icterus or pallor seen in eyes Chest-clear to auscultation bilaterally, breathing nonlabored no tachypnea, no wheezing, no crepitation, no crackles. Heart-S1-S2 normal, regular heart rate no murmur Abdomen bowel sounds positive on auscultation, soft nondistended nontender no guarding, no rigidity Skin -signs of chronic hyperpigmentation and open nonhealing wound present over left lower extremity Neurology-grossly intact, nonfocal alert awake oriented Extremity- no pedal edema able to move all 4 extremities open nonhealing wound present over left lower extremity Psychiatry - patient is not confused or agitated cooperated during physical examination Problem\Assessment\Plan 35-year-old female with past medical history of polysubstance abuse, chronic left lower extremity wound, presented to the ER with chief complaints of increasing pain and redness of the left lower extremity wound. # Cellulitis of the left lower extremity wound Failed outpatient antibiotic therapy Chronic nonhealing left lower extremity wound -she was recently prescribed doxycycline and cefpodoxime for cellulitis which she completed the course outpatient but still non-resolving infection -WBC 9.6, Lactic acid 1.1, procalcitonin 0.05 -previous wound cultures from December 2024 positive for Proteus and group B Streptococcus -MIGUEL A- negative, denies symptoms of IBS Plan - venous Doppler left lower extremity to ruled out DVT - on IV Zosyn 4.5 q.8h to cover for Pseudomonas, Gram-negative, anaerobic and vanco to cover for MRSA -will follow up on wound cultures, MRSA nasal swab, deescalate antibiotics based on cultures -CTA ABDOMEN LOWER EXTR RUNOFF result reviewed -consulted Dr Davis and Dr Gay -wound care to contine -pain management with [place] and morphine not sufficient per nursing staff Dilaudid started Peripheral artery disease -vascular Doppler done ruled out acute DVT -follow up on CTA aorta and lower extremities No significant arterial stenoses are identified in the abdomen, pelvis, or bilateral lower extremities. There is 3-vessel runoff to the bilateral ankles. -will follow up on lipid panel . hemoglobin A1c 5.0 Polysubstance abuse -patient is currently on opioid addiction with methadone, Nrusing staff Annie confirmed methadone dose with pharmacy -patient shows pain medication seeking behavior Code Status: Full code Line/tube: PIV DVT prophylaxis: Lovenox Nutrition: NPO PT: Yes 04/09-Patient was seen twice today in my visits. Care plan discussed with the patient's father and patient who is awake alert, All labs, diagnostic workup and discussed with patient All questions and queries answered to the best of my professional medical knowledge. We will continue with current antibiotic therapy and continue wound care treatment. I consulted Infectious Disease specialist Dr. Gay for this patient's case. Wound care team recommended surgical intervention so I left the message with Dr. Dominguez and requested surgical consultation. Somebody is helping patient in outpatient setting to find the housing. Patient's father feels that patient might need special plastic surgery. Patient do not want to go to [facility] as they do not respect her over there. In her last visit she left against medical advice in December 2024 from [facility]. Patient is currently on methadone for chronic opioid addiction . Nursing staff Annie feels patient needs stronger pain medications so Dilaudid ordered for pain control. substance abuse navigator consulted on this case and evaluated the patient. Continue to monitor patient's clinically. Patient's current condition is guarded I will follow patient in AM Date of Service: Apr 09, 2025 Billing Provider: KASSANDRA GIRARD MD Common Visit Codes: [id number] INP/OBS CARE(HIGH) KASSANDRA GIRARD MD Apr 09, 2025 19:03
[2025-04-09 20:00] VITALS: RESP 15; O2SAT 98
[2025-04-09] MEDS: polyethylene glycol 3350 17gm powd pack PO SCH (20:37)
[2025-04-09 22:00] VITALS: BP 104/56; PULSE 100; RESP 20; TEMP 98.9; O2SAT 93
[2025-04-10] MEDS: VANCOMYCIN LEVEL IV ONE (05:05)
[2025-04-10 05:22] LABS: MEAN PLATELET VOLUME 6.8 FL (7.4-10.4); RED CELL DISTRIBUTION WIDTH 15.8 % (11.5-14.5)
[2025-04-10 05:26] LABS: CREATININE 0.74 MG/DL (0.40-0.90); TOTAL CARBON DIOXIDE 28.1 MMOL/L (24-32); eCRCL 107 ML/MIN; eGFR 89 ML/MIN
[2025-04-10 06:00] VITALS: BP 101/50; PULSE 98; RESP 16; TEMP 100.4; O2SAT 93
[2025-04-10] MEDS: potassium Cl 20 mEq SR tablet PO PRN (08:14)
[2025-04-10 10:00] VITALS: BP 109/53; PULSE 97; RESP 20; TEMP 98; O2SAT 98
--- NOTE | 2025-04-10 15:54 | PROGRESS NOTE ---
Progress Note ID Providers to CC ~ Progress Note Progress Note: pt seen examined-needs wound debridement-surgery NICOLA LARA MD Apr 10, 2025 15:54
--- NOTE | 2025-04-10 17:34 | CARDIOLOGY REPORT ---
APPROVED REPORT EXAM: Comprehensive 2D, Doppler, and color-flow Echocardiogram. Patient Location: 352 Blood Pressure: 101/50 mmHg Heart Rate: 82 bpm Rhythm: Sinus Indications Pre-OP Assessment NO IMPLEMENTATION ARCHITECT NO Previous ECHO 2D Dimensions LA Diam 2.3 cm IVSd 0.9 (0.7-1.1cm) LVDd 4.6 cm PWd 0.7 (0.7-1.1cm) IVSs 1.2 (0.8-1.2cm) LVDs 3.2 (2.5-4.0cm) PWs 1.3 (0.8-1.2cm) LVOT Diameter 2.03 (1.8-2.4cm) LVEF(%) 58.7 (>50%) Ao Asc Diam. 2.51 cm IVC 15.36 mm FS (%) 31.0 % SV 57.6 ml CO 4.7 L/min M-Mode Dimensions Left Atrium(MM) 2.76 (2.5-4.0cm) Aortic Root 3.19 (2.2-3.7cm) Aortic Cusp Exc 1.95 (1.5-2.0cm) MV EPSS 0.7 (<0.5cm) Aortic Valve AoV Peak Ariel. 171.8 cm/s AoV VTI 28.4 cm AO Peak GR. 11.8 mmHg AO Mean GR. 6 mmHg LVOT VTI 24.61 cm LVOT Peak Ariel. 132.1 cm/s PRATIBHA(VTI)/BSA 2.80 cm2/m2 PRATIBHA (VTI) 2.80 cm2 AV DI 0.87 % Mitral Valve MV E Velocity 119.5 cm/s MV Peak Gr. 8 mmHg MV DECEL TIME 144 ms MV A Velocity 69.6 cm/s MV PHT 56 ms E/A Ratio 1.7 MVA (PHT) 3.93 cm2 MV VMax 141.7 cm/s TDI Lateral E' P. V 17.01 cm/s E/Lateral E' 7.0 Tricuspid Valve TR P. Velocity 238 cm/s RAP ESTIMATE 10 mmHg TR Peak Gr. 23 mmHg RVSP 33 mmHg LEFT VENTRICLE Normal LV size and wall thickness. Overall systolic function is normal. Overall LVEF is 60-65%. RIGHT VENTRICLE RV is normal size and function. ATRIA The left atrium size is normal. AORTIC VALVE Trileaflet AV appears mildly sclerotic without stenosis. No insufficiency. MITRAL VALVE Mild mitral annular calcification without stenosis. Trace regurgitation. TRICUSPID VALVE Tricuspid valve is grossly normal in structure with trace regurgitation. PULMONIC VALVE Pulmonic valve is grossly normal in structure with physiologic insufficiency. GREAT VESSELS The aortic root is normal in size. The ascending aorta is normal in size. The IVC is normal in size and collapses >50% with inspiration. PERICARDIUM Normal pericardium. No effusion. Other Information Study Quality: Adequate Conclusion Overall LVEF is 60-65%. Normal LV size and wall thickness. Overall systolic function is normal. RV is normal size and function. Trileaflet AV appears mildly sclerotic without stenosis. No insufficiency. Mild mitral annular calcification without stenosis. Trace regurgitation. Tricuspid valve is grossly normal in structure with trace regurgitation. Pulmonic valve is grossly normal in structure with physiologic insufficiency. Normal pericardium. No effusion.
[2025-04-10 18:00] VITALS: BP 100/52; PULSE 86; RESP 20; TEMP 98.6; O2SAT 96
[2025-04-10] MEDS: JUVEN Shake w/Arg/Glut/Ca2+Bmb (Juven 19.3gm) pkt 240ml PO SCH (18:30)
[2025-04-10 20:00] VITALS: RESP 20; O2SAT 98
--- NOTE | 2025-04-10 20:14 | PROGRESS NOTE ---
Daily Progress Note Providers to CC ~ Antibiotic Timeout Antibiotic Ordered?: Yes Subjective Was seen in presence of nursing staff today. Dr. Gay mentioned that he knows this patient from [facility] visit in in her last visit she left against medical advice just before she was about to go to OR. Dr. Dominguez consulted on this case and recommended wound debridement in a.m. Objective Vital Signs Date Time Temp Pulse Resp B/P (MAP) Pulse Ox O2 Delivery O2 Flow Rate FiO2 04/10/25 10:00 98.0 97 20 109/53 (71) 98 Room Air 04/10/25 08:00 0.0 Result Diagram: 04/10/25 0502 04/10/25 0502 General-patient not in any acute distress, alert awake oriented, obese, chronically ill-appearing HEENT-atraumatic normocephalic, neck supple without elevated JVD, no thyromegaly or carotid bruit. No lymphadenopathy bilaterally. Eyes-no icterus or pallor seen in eyes Chest-clear to auscultation bilaterally, breathing nonlabored no tachypnea, no wheezing, no crepitation, no crackles. Heart-S1-S2 normal, regular heart rate no murmur Abdomen bowel sounds positive on auscultation, soft nondistended nontender no guarding, no rigidity Skin -signs of chronic hyperpigmentation and large open nonhealing wound present over left lower extremity Neurology-grossly intact, nonfocal alert awake oriented Extremity- no pedal edema able to move all 4 extremities , large open nonhealing wound present over left lower extremity Psychiatry - patient is not confused or agitated cooperated during physical examination Problem\Assessment\Plan 35-year-old female with past medical history of polysubstance abuse, chronic left lower extremity wound, presented to the ER with chief complaints of increasing pain and redness of the left lower extremity wound. # Cellulitis of the left lower extremity wound Failed outpatient antibiotic therapy Chronic nonhealing left lower extremity wound -she was recently prescribed doxycycline and cefpodoxime for cellulitis which she completed the course outpatient but still non-resolving infection -WBC 9.6, Lactic acid 1.1, procalcitonin 0.05 -previous wound cultures from December 2024 positive for Proteus and group B Streptococcus -MIGUEL A- negative, denies symptoms of IBS Plan - venous Doppler left lower extremity to ruled out DVT - on IV Zosyn 4.5 q.8h to cover for Pseudomonas, Gram-negative, anaerobic and vanco to cover for MRSA -will follow up on wound cultures, MRSA nasal swab, deescalate antibiotics based on cultures -CTA ABDOMEN LOWER EXTR RUNOFF result reviewed -consulted Dr Davis and Dr Gay -wound care to continue -pain management with [place] and morphine not sufficient per nursing staff Dilaudid started Dr. Gay mentioned that he knows this patient from [facility] visit in in her last visit she left against medical advice just before she was about to go to OR. Dr. Dominguez consulted on this case and recommended wound debridement in a.m. Peripheral artery disease -vascular Doppler done ruled out acute DVT -follow up on CTA aorta and lower extremities No significant arterial stenoses are identified in the abdomen, pelvis, or bilateral lower extremities. There is 3-vessel runoff to the bilateral ankles. -will follow up on lipid panel . hemoglobin A1c 5.0 Polysubstance abuse -patient is currently on opioid addiction with methadone, Nrusing staff Annie confirmed methadone dose with pharmacy -patient shows pain medication seeking behavior Code Status: Full code Line/tube: PIV DVT prophylaxis: Lovenox Nutrition: NPO PT: Yes 04/09-Patient was seen twice today in my visits. Care plan discussed with the patient's father and patient who is awake alert, All labs, diagnostic workup and discussed with patient All questions and queries answered to the best of my professional medical knowledge. We will continue with current antibiotic therapy and continue wound care treatment. I consulted Infectious Disease specialist Dr. Gay for this patient's case. Wound care team recommended surgical intervention so I left the message with Dr. Dominguez and requested surgical consultation. Somebody is helping patient in outpatient setting to find the housing. Patient's father feels that patient might need special plastic surgery. Patient do not want to go to [facility] as they do not respect her over there. In her last visit she left against medical advice in December 2024 from [facility]. Patient is currently on methadone for chronic opioid addiction . Nursing staff Annie feels patient needs stronger pain medications so Dilaudid ordered for pain control. substance abuse navigator consulted on this case and evaluated the patient. Continue to monitor patient's clinically. Patient's current condition is guarded I will follow patient in AM Date of Service: Apr 10, 2025 Billing Provider: KASSANDRA GIRARD MD Common Visit Codes: [id number] INP/OBS CARE(HIGH) KASSANDRA GIRARD MD Apr 10, 2025 20:14
[2025-04-10 22:00] VITALS: BP 103/51; PULSE 74; RESP 20; TEMP 98.5; O2SAT 97
[2025-04-11] VITALS (21 sets, daily range): BP systolic 101–136; BP diastolic 60–92; PULSE 54–85; RESP 13–20; TEMP 97.5–98.9; O2SAT 92–98
[2025-04-11 05:03] LABS: MEAN PLATELET VOLUME 6.6 FL (7.4-10.4); RED CELL DISTRIBUTION WIDTH 15.7 % (11.5-14.5)
[2025-04-11 05:29] LABS: CREATININE 0.72 MG/DL (0.40-0.90); TOTAL CARBON DIOXIDE 26.2 MMOL/L (24-32); eCRCL 110 ML/MIN; eGFR > 90 ML/MIN
[2025-04-11 07:36] LABS: PRE OP INR 1.0 INR; PRE OP PARTIAL THROMB. TIME 28.0 SECONDS (22-32); PRE OP PROTIME 10.4 SECONDS (9.0-12.0)
[2025-04-11 11:22] LABS: PRO BRAIN NATRIURETIC PEPTIDE 551 PG/ML (0-125)
--- NOTE | 2025-04-11 14:19 | PROGRESS NOTE ---
Progress Note ID Providers to CC ~ Progress Note Progress Note: discussed procedure including risks/benefits/alternatives NICOLA LARA MD Apr 11, 2025 14:19
--- NOTE | 2025-04-11 14:32 | ELECTROCARDIOGRAPH REPORT ---
[facility] Test Date: 2025-04-11 Test Time: 14:30:48 Pat Name: YOUNG MANLEY Department: [facility] 3 Patient ID: [facility]-[id number] Room: [place] [address] A Gender: F Change Advisor: DAYAN : 1990 Requested By: NICOLA LARA Order Number: [id number] Reading MD: Dr. MIRIAM Ceron Measurements Intervals [place] Rate: 69 P: 52 OR: 164 QRS: 48 QRSD: 105 T: 32 QT: 431 QTc: 462 Interpretive Statements Sinus rhythm Electronically Signed On 04-11-2025 16:54:[address] MIRIAM Ceron Please click the below link to view image of tracing.
[2025-04-11 14:41] LABS: LEUKOCYTE ESTERASE ,URINE NEGATIVE (Neg); NITRITES, URINE NEGATIVE (Neg); OCCULT BLOOD,URINE TRACE-INTACT (Neg); UA COLLECTION TYPE NON-SPECIFIED
[2025-04-11] MEDS ORDERED: HYDROmorphone inj. 0.5 MG/0.5 ML DISP.SYRIN IV PRN (14:50)
[2025-04-11] MEDS ORDERED: labetalol 20mg/4ml (5mg/ml) syringe IV PRN (14:50)
[2025-04-11] MEDS ORDERED: ondansetron/PF 4mg/2ml inj IV PRN (14:50)
[2025-04-11] MEDS ORDERED: hydrALAZINE 20mg/ml inj. IV PRN (14:50)
[2025-04-11] MEDS ORDERED: fentaNYL/PF 50MCG/1 ML 2ML syringe IV PRN (14:50)
[2025-04-11] MEDS: ringers solution, lacted 1,000 ML IV SCH (14:50)
[2025-04-11 14:53] LABS: URINE AMPHETAMINE SCREEN POSITIVE (Neg); URINE BARBITUATE SCREEN NEGATIVE (Neg); URINE BENZODIAZEPINES SCREEN NEGATIVE (Neg); URINE CANNABINOID SCREEN NEGATIVE (Neg); URINE COCAINE SCREEN NEGATIVE (Neg); URINE METHADONE SCREEN POSITIVE (Neg); URINE OPIATE SCREEN NEGATIVE (Neg); URINE PHENCYCLIDINE SCREEN NEGATIVE (Neg)
[2025-04-11] MEDS ORDERED: midazolam 1 mg/ML 2ml injection ONE (14:53)
[2025-04-11] MEDS ORDERED: propofol inj 20 ML IV ONE (14:53)
[2025-04-11] MEDS ORDERED: fentaNYL/PF 50MCG/1 ML 2ML syringe ONE ×2 (14:53→15:21)
[2025-04-11 14:59] LABS: SQUAMOUS EPITHELIAL CELL,UR FEW /LPF (FEW)
[2025-04-11] MEDS ORDERED: rocuronium 10mg/ml inj IV ONE (15:20)
[2025-04-11] MEDS ORDERED: ondansetron/PF 4mg/2ml inj ONE (15:24)
--- NOTE | 2025-04-11 15:40 | OPERATIVE REPORT ---
Operative Report Providers to CC ~ Date of Procedure: Apr 11, 2025 Pre-Operative Diagnosis: LLE wound Post-Operative Diagnosis SAME as PRE-Op Procedure Performed LLE wound debridement Surgeon: sid Services Executive none Anesthesiologist: Thom Marie Type of Anesthesia: General Findings: large LLE wound Estimated Blood Loss: min Specimen Removed: wound debris NICOLA LARA MD Apr 11, 2025 15:40
[2025-04-11] MEDS ORDERED: dexamethasone sod phosphate 4mg/ml inj. ONE (15:49)
[2025-04-11] MEDS ORDERED: glycopyrrolate 0.2mg/ml inj ONE (15:49)
[2025-04-11] MEDS: fentaNYL/PF 50MCG/1 ML 2ML syringe IV PRN (15:57)
[2025-04-11] MEDS: acetaminophen 1,000mg/100ml IV 100 ML IV ONE (16:06)
[2025-04-11] MEDS: HYDROmorphone inj. 0.5 MG/0.5 ML DISP.SYRIN IV PRN (16:29)
--- NOTE | 2025-04-11 18:23 | OPERATIVE REPORT ---
DATE OF SURGERY: 04/11/2025 DICTATING PHYSICIAN: Will Davis MD PREOPERATIVE DIAGNOSIS: Chronic left lower extremity infected wound. POSTOPERATIVE DIAGNOSIS: Chronic left lower extremity infected wound. PROCEDURE PERFORMED: Left lower extremity wound debridement. SURGEON: Will Davis MD PHARMACY BUYER: None. ANESTHESIA: General/ . DRAINS: None. INDICATIONS FOR OPERATION: The patient is a 35-year-old female with a longstanding chronic left lower extremity wound, which became infected. INTRAOPERATIVE FINDINGS: Large amount of wound debris. Minimal necrotic tissue. DESCRIPTION OF PROCEDURE: The patient was placed supine on the operating table. After induction of general anesthesia and placement of endotracheal tube, the patient was placed in the right lateral decubitus position, left leg was prepped and draped. After a timeout was performed, the wounds were carefully examined. The patient had minimal necrotic tissue. Curette was used to remove any loose debris. The patient had good bleeding in the granulation tissue. No pus identified and no necrotic tissue identified. After wound debridement was then completed, she was then placed with moist Kerlix with Irrisept and dry dressing applied. Total wound surface area was approximately 60 square cm. The patient was transferred to recovery in stable condition. Will Davis MD TID: [id number] RECEIPT: [id number] KB/[facility]
--- NOTE | 2025-04-11 20:02 | PROGRESS NOTE ---
Daily Progress Note Providers to CC ~ Antibiotic Timeout Antibiotic Ordered?: Yes Subjective Patient was seen in presence of nursing staff Ivanna today. Patient was waiting to go for left lower extremity wound debridement today and was NPO. As per nursing staff patient developed swelling over her eyelids and patient feels it is because of the tape over the IV site. Steroid ordered for eye swelling and also ordered BNP and urine drug screen. Urine drug screen positive for fentanyl and meth, elevated BNP 551 Objective Vital Signs Date Time Temp Pulse Resp B/P (MAP) Pulse Ox O2 Delivery O2 Flow Rate FiO2 04/11/25 16:35 69 13 129/83 (98) 95 Room Air 0.0 04/11/25 15:55 97.0 Result Diagram: 04/11/25 0451 04/11/25 0451 General-patient not in any acute distress, alert awake oriented, obese, chronically ill-appearing HEENT-atraumatic normocephalic, neck supple without elevated JVD, no thyromegaly or carotid bruit. No lymphadenopathy bilaterally. Eyes-no icterus or pallor seen in eyes Chest-clear to auscultation bilaterally, breathing nonlabored no tachypnea, no wheezing, no crepitation, no crackles. Heart-S1-S2 normal, regular heart rate no murmur Abdomen bowel sounds positive on auscultation, soft nondistended nontender no guarding, no rigidity Skin -signs of chronic hyperpigmentation and large open nonhealing wound present over left lower extremity Neurology-grossly intact, nonfocal alert awake oriented Extremity- no pedal edema able to move all 4 extremities , large open nonhealing wound present over left lower extremity Psychiatry - patient is not confused or agitated cooperated during physical examination Coagulation Studies Laboratory Tests Test 04/11/25 07:11 Prothrombin Time 10.4 SECONDS (9.0-12.0) INR International Normalized Ratio 1.0 INR Activated Partial Thromboplast Time 28 SECONDS (22-32) Problem\Assessment\Plan 35-year-old female with past medical history of polysubstance abuse, chronic left lower extremity wound, presented to the ER with chief complaints of increasing pain and redness of the left lower extremity wound. # Cellulitis of the left lower extremity wound Failed outpatient antibiotic therapy Chronic nonhealing left lower extremity wound -she was recently prescribed doxycycline and cefpodoxime for cellulitis which she completed the course outpatient but still non-resolving infection -WBC 9.6, Lactic acid 1.1, procalcitonin 0.05 -previous wound cultures from December 2024 positive for Proteus and group B Streptococcus -MIGUEL A- negative, denies symptoms of IBS Plan - venous Doppler left lower extremity to ruled out DVT - on IV Zosyn 4.5 q.8h to cover for Pseudomonas, Gram-negative, anaerobic and vanco to cover for MRSA -will follow up on wound cultures, MRSA nasal swab, deescalate antibiotics based on cultures -CTA ABDOMEN LOWER EXTR RUNOFF result reviewed -consulted Dr Davis and Dr Gay -wound care to continue -pain management with [facility] and morphine not sufficient per nursing staff Dilaudid started 04/09-Patient was seen twice today in my visits. Care plan discussed with the patient's father and patient who is awake alert, All labs, diagnostic workup and discussed with patient All questions and queries answered to the best of my professional medical knowledge. We will continue with current antibiotic therapy and continue wound care treatment. I consulted Infectious Disease specialist Dr. Gay for this patient's case. Wound care team recommended surgical intervention so I left the message with Dr. Dominguez and requested surgical consultation. Somebody is helping patient in outpatient setting to find the housing. Patient's father feels that patient might need special plastic surgery. Patient do not want to go to [facility] as they do not respect her over there. In her last visit she left against medical advice in December 2024 from [facility]. Patient is currently on methadone for chronic opioid addiction . Nursing staff Annie feels patient needs stronger pain medications so Dilaudid ordered for pain control. substance abuse navigator consulted on this case and evaluated the patient. Continue to monitor patient's clinically. 04/10-Dr. Gay mentioned that he knows this patient from [facility] visit in in her last visit she left against medical advice just before she was about to go to [place]. Dr. Dominguez consulted on this case and recommended wound debridement in a.m. 04/11- left lower extremity wound debridement today Peripheral artery disease -vascular Doppler done ruled out acute DVT -follow up on CTA aorta and lower extremities No significant arterial stenoses are identified in the abdomen, pelvis, or bilateral lower extremities. There is 3-vessel runoff to the bilateral ankles. -will follow up on lipid panel . hemoglobin A1c 5.0 Polysubstance abuse -patient is currently on opioid addiction with methadone, Nrusing staff Annie confirmed methadone dose with pharmacy -patient shows pain medication seeking behavior - Urine drug screen positive for fentanyl and meth, elevated BNP 551 Code Status: Full code Line/tube: PIV DVT prophylaxis: Lovenox Nutrition: NPO PT: Yes Patient's current condition is guarded I will follow patient in AM . Date of Service: Apr 11, 2025 Billing Provider: KASSANDRA GIRARD MD Common Visit Codes: [id number] INP/OBS CARE(HIGH) KASSANDRA GIRARD MD Apr 11, 2025 20:02
[2025-04-12] VITALS (7 sets, daily range): BP systolic 96–125; BP diastolic 51–74; PULSE 63–71; RESP 14–22; TEMP 97.6–98.3; O2SAT 95–98
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
[2025-04-12] MEDS: methylPREDNISolone sod succ/PF 40mg inj. IV ONE (05:24)
[2025-04-12 06:15] LABS: CREATININE 0.76 MG/DL (0.40-0.90); TOTAL CARBON DIOXIDE 24.8 MMOL/L (24-32); eCRCL 104 ML/MIN; eGFR 87 ML/MIN
[2025-04-12 06:16] LABS: MEAN PLATELET VOLUME 7.0 FL (7.4-10.4); RED CELL DISTRIBUTION WIDTH 15.8 % (11.5-14.5)
--- NOTE | 2025-04-12 13:07 | PROGRESS NOTE ---
Progress Note ID Providers to CC ~ Progress Note Progress Note: doing well/cont wound care NICOLA LARA MD Apr 12, 2025 13:07
[2025-04-12] MEDS: LIDOcaine 4% (40 mg/ml) topical solution 50ml TP PRN (13:45)
[2025-04-12] MEDS: Dakins solution (1/4 strength) 473ml solution TP SCH (13:47)
--- NOTE | 2025-04-12 19:07 | PROGRESS NOTE ---
Daily Progress Note Providers to CC ~ Antibiotic Timeout Antibiotic Ordered?: Yes Subjective patient was seen in her room in presence of surgical nursing staff. Patient denied use of meth even though it was positive in her urine drug screen. Dr. Dominguez following the patient recommended to continue current wound care treatment Objective Vital Signs Date Time Temp Pulse Resp B/P (MAP) Pulse Ox O2 Delivery O2 Flow Rate FiO2 04/12/25 13:43 16 04/12/25 10:15 98.0 63 125/74 (91) 95 Room Air 04/12/25 08:50 0.0 Result Diagram: 04/12/2545004/12/25450 General-patient not in any acute distress, alert awake oriented, obese, chronically ill-appearing HEENT-atraumatic normocephalic, neck supple without elevated JVD, no thyromegaly or carotid bruit. No lymphadenopathy bilaterally. Eyes-no icterus or pallor seen in eyes Chest-clear to auscultation bilaterally, breathing nonlabored no tachypnea, no wheezing, no crepitation, no crackles. Heart-S1-S2 normal, regular heart rate no murmur Abdomen bowel sounds positive on auscultation, soft nondistended nontender no guarding, no rigidity Skin -signs of chronic hyperpigmentation and large open nonhealing wound present over left lower extremity Neurology-grossly intact, nonfocal alert awake oriented Extremity- no pedal edema able to move all 4 extremities , large open nonhealing wound present over left lower extremity Psychiatry - patient is not confused or agitated cooperated during physical examination Coagulation Studies Laboratory Tests Test 04/11/25 07:11 Prothrombin Time 10.4 SECONDS (9.0-12.0) INR International Normalized Ratio 1.0 INR Activated Partial Thromboplast Time 28 SECONDS (22-32) Problem\Assessment\Plan 35-year-old female with past medical history of polysubstance abuse, chronic left lower extremity wound, presented to the ER with chief complaints of increasing pain and redness of the left lower extremity wound. # Cellulitis of the left lower extremity wound Failed outpatient antibiotic therapy Chronic nonhealing left lower extremity wound -she was recently prescribed doxycycline and cefpodoxime for cellulitis which she completed the course outpatient but still non-resolving infection -WBC 9.6, Lactic acid 1.1, procalcitonin 0.05 -previous wound cultures from December 2024 positive for Proteus and group B Streptococcus -MIGUEL A- negative, denies symptoms of IBS Plan - venous Doppler left lower extremity to ruled out DVT - on IV Zosyn 4.5 q.8h to cover for Pseudomonas, Gram-negative, anaerobic and vanco to cover for MRSA -will follow up on wound cultures, MRSA nasal swab, deescalate antibiotics based on cultures -CTA ABDOMEN LOWER EXTR RUNOFF result reviewed -consulted Dr Davis and Dr Gay -wound care to continue -pain management with [place] and morphine not sufficient per nursing staff Dilaudid started 04/09-Patient was seen twice today in my visits. Care plan discussed with the patient's father and patient who is awake alert, All labs, diagnostic workup and discussed with patient All questions and queries answered to the best of my professional medical knowledge. We will continue with current antibiotic therapy and continue wound care treatment. I consulted Infectious Disease specialist Dr. Gay for this patient's case. Wound care team recommended surgical intervention so I left the message with Dr. Dominguez and requested surgical consultation. Somebody is helping patient in outpatient setting to find the housing. Patient's father feels that patient might need special plastic surgery. Patient do not want to go to [facility] as they do not respect her over there. In her last visit she left against medical advice in December 2024 from [facility]. Patient is currently on methadone for chronic opioid addiction . Nursing staff Annie feels patient needs stronger pain medications so Dilaudid ordered for pain control. substance abuse navigator consulted on this case and evaluated the patient. Continue to monitor patient's clinically. 04/10-Dr. Gay mentioned that he knows this patient from [facility] visit in in her last visit she left against medical advice just before she was about to go to OR. Dr. Dominguez consulted on this case and recommended wound debridement in a.m. 04/11- left lower extremity wound debridement today 04/12-Patient denied use of Meth even though it was positive in her urine drug screen ON 04/11/[address] Dominguez following the patient recommended to continue current wound care treatment Peripheral artery disease -vascular Doppler done ruled out acute DVT -follow up on CTA aorta and lower extremities No significant arterial stenoses are identified in the abdomen, pelvis, or bilateral lower extremities. There is 3-vessel runoff to the bilateral ankles. -will follow up on lipid panel . hemoglobin A1c 5.0 Polysubstance abuse -patient is currently on opioid addiction with methadone, Nrusing staff Annie confirmed methadone dose with pharmacy -patient shows pain medication seeking behavior - Urine drug screen positive for fentanyl and meth, elevated BNP 551 Code Status: Full code Line/tube: PIV DVT prophylaxis: Lovenox Nutrition: NPO PT: Yes Patient's current condition is guarded I will follow patient in AM . Date of Service: Apr 12, 2025 Billing Provider: KASSANDRA GIRARD MD Common Visit Codes: [id number] INP/OBS CARE(HIGH) KASSANDRA GIRARD MD Apr 12, 2025 19:07
[2025-04-12] MEDS: piperacillin/tazo 3.375gm/50ml 50 ML IV SCH (23:23)
[2025-04-13 06:50] LABS: MEAN PLATELET VOLUME 6.7 FL (7.4-10.4); RED CELL DISTRIBUTION WIDTH 15.9 % (11.5-14.5)
[2025-04-13 07:09] VITALS: BP 148/86; PULSE 78; RESP 18; TEMP 98.3; O2SAT 96
[2025-04-13 07:16] LABS: CREATININE 0.81 MG/DL (0.40-0.90); TOTAL CARBON DIOXIDE 26.6 MMOL/L (24-32); eCRCL 98 ML/MIN; eGFR 80 ML/MIN
[2025-04-13 08:47] VITALS: RESP 18; O2SAT 96
[2025-04-13 13:09] VITALS: BP_SYST 104; BP_SYST 139; BP_DIAS 53; BP_DIAS 78; PULSE 65; PULSE 66; RESP 15; RESP 16; TEMP 98.6; O2SAT 95; O2SAT 99
--- NOTE | 2025-04-13 15:07 | PROGRESS NOTE ---
Progress Note Dictate Providers to CC CC: KINGA REYES MD ~ Progress Note: Subsequent surgical care on a 35-year-old woman who is postoperative day 2. Status post posterior calf debridement for chronic wound infection Covering for Dr. Will Davis over the weekend Leukocytosis resolved Wound is dressed and wound care following Wound VAC per Dr. Will Davis on Tuesday No acute surgical issues Continue antibiotics Antibiotic Ordered?: Yes Objective Vitals Vital Signs Date Time Temp Pulse Resp B/P (MAP) Pulse Ox O2 Delivery O2 Flow Rate FiO2 04/13/25 13:09 98.6 66 15 104/53 (70) 95 Room Air 04/13/25 08:47 0.0 Lab Results: 04/13/25 0618 04/13/25 0618 Coagulation Studies Laboratory Tests Test 04/11/25 07:11 Prothrombin Time 10.4 SECONDS (9.0-12.0) INR International Normalized Ratio 1.0 INR Activated Partial Thromboplast Time 28 SECONDS (22-32) KINGA REYES MD Apr 13, 2025 15:07
[2025-04-13] MEDS ORDERED: magnesium Cl slow-release 64mg tablet PO PRN (15:30)
[2025-04-13] MEDS ORDERED: magnesium sulf-water 2g/50mL 50 ML IV PRN (15:30)
[2025-04-13] MEDS ORDERED: magnesium sulf-water 4G/100mL 100 ML IV PRN (15:30)
[2025-04-13] MEDS ORDERED: potassium Cl 40MEQ/1/2NS 520ml 520 ML IV PRN (15:30)
[2025-04-13] MEDS ORDERED: potassium Cl 20 mEq SR tablet PO PRN (15:30)
[2025-04-13] MEDS: potassium Cl 20 mEq SR tablet PO STA (15:43)
[2025-04-13 18:00] VITALS: BP 112/55; PULSE 72; RESP 16; TEMP 98.3; O2SAT 97
[2025-04-13] MEDS: potassium Cl 20 mEq SR tablet PO PRN (19:45)
--- NOTE | 2025-04-13 19:49 | PROGRESS NOTE ---
Daily Progress Note Providers to CC ~ Antibiotic Timeout Antibiotic Ordered?: Yes Subjective Patient was seen in her room in presence of nursing staff tried to examine wound but patient felt lot of discomfort. Dr. Alvarez rounded on this patient today and his consult note reviewed Objective Vital Signs Date Time Temp Pulse Resp B/P (MAP) Pulse Ox O2 Delivery O2 Flow Rate FiO2 04/13/25 19:46 13 04/13/25 13:09 98.6 66 104/53 (70) 95 Room Air 04/13/25 08:47 0.0 Result Diagram: 04/13/2518 04/13/25617 General-patient not in any acute distress, alert awake oriented, obese, chronically ill-appearing HEENT-atraumatic normocephalic, neck supple without elevated JVD, no thyromegaly or carotid bruit. No lymphadenopathy bilaterally. Eyes-no icterus or pallor seen in eyes Chest-clear to auscultation bilaterally, breathing nonlabored no tachypnea, no wheezing, no crepitation, no crackles. Heart-S1-S2 normal, regular heart rate no murmur Abdomen bowel sounds positive on auscultation, soft nondistended nontender no guarding, no rigidity Skin -signs of chronic hyperpigmentation and large open nonhealing wound present over left lower extremity Neurology-grossly intact, nonfocal alert awake oriented Extremity- no pedal edema able to move all 4 extremities , large open nonhealing wound present over left lower extremity Psychiatry - patient is not confused or agitated cooperated during physical examination Coagulation Studies Laboratory Tests Test 04/11/25 07:11 Prothrombin Time 10.4 SECONDS (9.0-12.0) INR International Normalized Ratio 1.0 INR Activated Partial Thromboplast Time 28 SECONDS (22-32) Problem\Assessment\Plan 35-year-old female with past medical history of polysubstance abuse, chronic left lower extremity wound, presented to the ER with chief complaints of increasing pain and redness of the left lower extremity wound. # Cellulitis of the left lower extremity wound Failed outpatient antibiotic therapy Chronic nonhealing left lower extremity wound -she was recently prescribed doxycycline and cefpodoxime for cellulitis which she completed the course outpatient but still non-resolving infection -WBC 9.6, Lactic acid 1.1, procalcitonin 0.05 -previous wound cultures from December 2024 positive for Proteus and group B Streptococcus -MIGUEL A- negative, denies symptoms of IBS Plan - venous Doppler left lower extremity to ruled out DVT - on IV Zosyn 4.5 q.8h to cover for Pseudomonas, Gram-negative, anaerobic and vanco to cover for MRSA -will follow up on wound cultures, MRSA nasal swab, deescalate antibiotics based on cultures -CTA ABDOMEN LOWER EXTR RUNOFF result reviewed -consulted Dr Davis and Dr Gay -wound care to continue -pain management with [place] and morphine not sufficient per nursing staff Dilaudid started 04/09-Patient was seen twice today in my visits. Care plan discussed with the patient's father and patient who is awake alert, All labs, diagnostic workup and discussed with patient All questions and queries answered to the best of my professional medical knowledge. We will continue with current antibiotic therapy and continue wound care treatment. I consulted Infectious Disease specialist Dr. Gay for this patient's case. Wound care team recommended surgical intervention so I left the message with Dr. Dominguez and requested surgical consultation. Somebody is helping patient in outpatient setting to find the housing. Patient's father feels that patient might need special plastic surgery. Patient do not want to go to [facility] as they do not respect her over there. In her last visit she left against medical advice in December 2024 from [facility]. Patient is currently on methadone for chronic opioid addiction . Nursing staff Annie feels patient needs stronger pain medications so Dilaudid ordered for pain control. substance abuse navigator consulted on this case and evaluated the patient. Continue to monitor patient's clinically. 04/10-Dr. Gay mentioned that he knows this patient from [facility] visit in in her last visit she left against medical advice just before she was about to go to OR. Dr. Dominguez consulted on this case and recommended wound debridement in a.m. 04/11- left lower extremity wound debridement today 04/12-Patient denied use of Meth even though it was positive in her urine drug screen ON 04/11/[address] Dominguez following the patient recommended to continue current wound care treatment 04/13- Wound VAC per Dr. Will Davis on Tuesday Peripheral artery disease -vascular Doppler done ruled out acute DVT -follow up on CTA aorta and lower extremities No significant arterial stenoses are identified in the abdomen, pelvis, or bilateral lower extremities. There is 3-vessel runoff to the bilateral ankles. -will follow up on lipid panel . hemoglobin A1c 5.0 Polysubstance abuse -patient is currently on opioid addiction with methadone, Nrusing staff Annie confirmed methadone dose with pharmacy -patient shows pain medication seeking behavior - Urine drug screen positive for fentanyl and meth, elevated BNP 551 Code Status: Full code Line/tube: PIV DVT prophylaxis: Lovenox Nutrition: NPO PT: Yes Patient's current condition is guarded I will follow patient in AM . Date of Service: Apr 13, 2025 Billing Provider: KASSANDRA GIRARD MD Common Visit Codes: [id number] INP/OBS CARE(HIGH) KASSANDRA GIRARD MD Apr 13, 2025 19:49
[2025-04-13] MEDS: K and/or MAG REPLACEMENT MC SCH (19:52)
[2025-04-13 20:00] VITALS: RESP 16; O2SAT 97
[2025-04-13 22:00] VITALS: BP 110/53; PULSE 74; RESP 16; TEMP 98; O2SAT 99
[2025-04-14 06:00] VITALS: BP 116/63; PULSE 65; RESP 14; TEMP 97.4; O2SAT 96
[2025-04-14 06:32] LABS: MEAN PLATELET VOLUME 6.6 FL (7.4-10.4); RED CELL DISTRIBUTION WIDTH 15.7 % (11.5-14.5)
[2025-04-14 07:26] LABS: CREATININE 0.90 MG/DL (0.40-0.90); TOTAL CARBON DIOXIDE 25.7 MMOL/L (24-32); eCRCL 88 ML/MIN; eGFR 71 ML/MIN
[2025-04-14 08:00] VITALS: RESP 18; O2SAT 96
--- NOTE | 2025-04-14 08:27 | PROGRESS NOTE ---
Progress Note Dictate Providers to CC CC: KINGA REYES MD ~ Progress Note: Subsequent surgical care on a 35-year-old woman who is postoperative day 3. Status post posterior calf debridement for chronic wound infection Covering for Dr. Will Davis over the weekend Leukocytosis improved/resolved Wound is dressed and wound care following Wound VAC per Dr. Will Davis on Tuesday No acute surgical issues Continue antibiotics Antibiotic Ordered?: Yes Objective Vitals Vital Signs Date Time Temp Pulse Resp B/P (MAP) Pulse Ox O2 Delivery O2 Flow Rate FiO2 04/14/25 06:00 97.4 65 14 116/63 (80) 96 Room Air 04/13/25 20:00 0.0 Lab Results: 04/14/25 0606 04/14/25 0606 Coagulation Studies Laboratory Tests Test 04/11/25 07:11 Prothrombin Time 10.4 SECONDS (9.0-12.0) INR International Normalized Ratio 1.0 INR Activated Partial Thromboplast Time 28 SECONDS (22-32) KINGA REYES MD Apr 14, 2025 08:27
[2025-04-14 10:00] VITALS: BP 107/59; PULSE 70; RESP 17; TEMP 97.6; O2SAT 99
[2025-04-14 18:00] VITALS: BP 115/63; PULSE 69; RESP 19; TEMP 98; O2SAT 98
--- NOTE | 2025-04-14 18:49 | PROGRESS NOTE ---
Daily Progress Note Providers to CC ~ Antibiotic Timeout Antibiotic Ordered?: Yes Subjective Patient was seen in her room in presence of nursing staff and his father today. Dr. Alvarez rounded on this patient today and his consult note reviewed Objective Vital Signs Date Time Temp Pulse Resp B/P (MAP) Pulse Ox O2 Delivery O2 Flow Rate FiO2 04/14/25 17:12 Room Air 04/14/25 16:59 17 04/14/25 10:00 97.6 70 107/59 (75) 99 04/14/25 08:00 0.0 Result Diagram: 04/14/25 0606 04/14/25 06 General-patient not in any acute distress, alert awake oriented, obese, chronically ill-appearing HEENT-atraumatic normocephalic, neck supple without elevated JVD, no thyromegaly or carotid bruit. No lymphadenopathy bilaterally. Eyes-no icterus or pallor seen in eyes Chest-clear to auscultation bilaterally, breathing nonlabored no tachypnea, no wheezing, no crepitation, no crackles. Heart-S1-S2 normal, regular heart rate no murmur Abdomen bowel sounds positive on auscultation, soft nondistended nontender no guarding, no rigidity Skin -dressing in place over large open nonhealing wound present over left lower extremity Neurology-grossly intact, nonfocal alert awake oriented Extremity- no pedal edema able to move all 4 extremities , dressing in place over large open nonhealing wound present over left lower extremity Psychiatry - patient is not confused or agitated cooperated during physical examination Coagulation Studies Laboratory Tests Test 04/11/25 07:11 Prothrombin Time 10.4 SECONDS (9.0-12.0) INR International Normalized Ratio 1.0 INR Activated Partial Thromboplast Time 28 SECONDS (22-32) Problem\Assessment\Plan 35-year-old female with past medical history of polysubstance abuse, chronic left lower extremity wound, presented to the ER with chief complaints of increasing pain and redness of the left lower extremity wound. # Cellulitis of the left lower extremity wound Failed outpatient antibiotic therapy Chronic nonhealing left lower extremity wound -she was recently prescribed doxycycline and cefpodoxime for cellulitis which she completed the course outpatient but still non-resolving infection -WBC 9.6, Lactic acid 1.1, procalcitonin 0.05 -previous wound cultures from December 2024 positive for Proteus and group B Streptococcus -MIGUEL A- negative, denies symptoms of IBS Plan - venous Doppler left lower extremity to ruled out DVT - on IV Zosyn 4.5 q.8h to cover for Pseudomonas, Gram-negative, anaerobic and vanco to cover for MRSA -will follow up on wound cultures, MRSA nasal swab, deescalate antibiotics based on cultures -CTA ABDOMEN LOWER EXTR RUNOFF result reviewed -consulted Dr Davis and Dr Gay -wound care to continue -pain management with [place] and morphine not sufficient per nursing staff Dilaudid started 04/09-Patient was seen twice today in my visits. Care plan discussed with the patient's father and patient who is awake alert, All labs, diagnostic workup and discussed with patient All questions and queries answered to the best of my professional medical knowledge. We will continue with current antibiotic therapy and continue wound care treatment. I consulted Infectious Disease specialist Dr. Gay for this patient's case. Wound care team recommended surgical intervention so I left the message with Dr. Dominguez and requested surgical consultation. Somebody is helping patient in outpatient setting to find the housing. Patient's father feels that patient might need special plastic surgery. Patient do not want to go to [facility] as they do not respect her over there. In her last visit she left against medical advice in December 2024 from [facility]. Patient is currently on methadone for chronic opioid addiction . Nursing staff Annie feels patient needs stronger pain medications so Dilaudid ordered for pain control. substance abuse navigator consulted on this case and evaluated the patient. Continue to monitor patient's clinically. 04/10-Dr. Gay mentioned that he knows this patient from [facility] visit in in her last visit she left against medical advice just before she was about to go to OR. Dr. Dominguez consulted on this case and recommended wound debridement in a.m. 04/11- left lower extremity wound debridement today 04/12-Patient denied use of Meth even though it was positive in her urine drug screen ON 04/11/[address] Dominguez following the patient recommended to continue current wound care treatment 04/13- Wound VAC per Dr. Will Davis on Saturday 04/14- Dr. Alvarez rounded on this patient today and his consult note reviewed Peripheral artery disease -vascular Doppler done ruled out acute DVT -follow up on CTA aorta and lower extremities No significant arterial stenoses are identified in the abdomen, pelvis, or bilateral lower extremities. There is 3-vessel runoff to the bilateral ankles. -will follow up on lipid panel . hemoglobin A1c 5.0 Polysubstance abuse -patient is currently on opioid addiction with methadone, Nrusing staff Annie confirmed methadone dose with pharmacy -patient shows pain medication seeking behavior - Urine drug screen positive for fentanyl and meth, elevated BNP 551 Code Status: Full code Line/tube: PIV DVT prophylaxis: Lovenox Nutrition: NPO PT: Yes Patient's current condition is guarded I will follow patient in AM . Date of Service: Apr 14, 2025 Billing Provider: KASSANDRA GIRARD MD Common Visit Codes: [id number] INP/OBS CARE(HIGH) KASSANDRA GIRARD MD Apr 14, 2025 18:49
[2025-04-14 20:00] VITALS: RESP 16; O2SAT 96
[2025-04-14 22:00] VITALS: BP 104/48; PULSE 67; RESP 18; TEMP 98.2; O2SAT 96
[2025-04-15 05:00] VITALS: BP 99/47; PULSE 64; RESP 16; TEMP 97.5; O2SAT 95
[2025-04-15 09:30] VITALS: RESP 16; O2SAT 95
[2025-04-15 10:00] VITALS: BP 103/59; PULSE 82; RESP 17; TEMP 97.9; O2SAT 95
--- NOTE | 2025-04-15 11:06 | PROGRESS NOTE ---
Progress Note Dictate Providers to CC ~ Subjective Subjective: She is known to me from recent hospitalization at [facility]. He has a longstanding left lower leg wound that causes her severe pain. She was going to have this wound debrided at [facility] but left against medical advice. She was then admitted here. She was eventually taken to the operating room by Dr. Davis for debridement. She is supposed to have a wound VAC placed today. Objective Objective: Pleasant middle-aged female who looks stable Lungs clear to auscultation bilaterally Heart regular rate and rhythm Abdomen obese soft and nontender Extremities - large open wound at left lower leg dominantly at posterior aspect. There is deep ulceration with slough. Lab Results: 04/14/25 0606 04/14/25 0606 Problem\Assessment\Plan Additional Plan Chronic wound at left lower leg with deep ulceration and evidence of infection s/p debridement Polymicrobial infection, including Pseudomonas Healing has been hampered by social situation Continue Isa while here Will review cultures at [facility] again and determine appropriate therapy for discharge Wound VAC per Dr. Davis Follow up at wound clinic YULIA TREVINO MD Apr 15, 2025 11:06
[2025-04-15 12:13] VITALS: RESP 18
[2025-04-15 13:00] LABS: MEAN PLATELET VOLUME 6.6 FL (7.4-10.4); RED CELL DISTRIBUTION WIDTH 15.7 % (11.5-14.5)
[2025-04-15 13:28] LABS: CREATININE 0.87 MG/DL (0.40-0.90); TOTAL CARBON DIOXIDE 27.9 MMOL/L (24-32); eCRCL 91 ML/MIN; eGFR 74 ML/MIN
--- NOTE | 2025-04-15 14:43 | PROGRESS NOTE ---
Progress Note ID Providers to CC ~ Progress Note Progress Note: doing well/home today NICOLA LARA MD Apr 15, 2025 14:43
[2025-04-15] MEDS ORDERED: AMOX-580 PO (15:07)
[2025-04-15] MEDS ORDERED: CIPR-259 PO (15:07)
[2025-04-15] MEDS ORDERED: ACET-1008 PO (15:09)
[2025-04-15] MEDS ORDERED: IBUP600T52 PO (15:10)
[2025-04-15] MEDS ORDERED: PANT40TA54 PO (15:10)
--- NOTE | 2025-04-15 21:07 | DISCHARGE SUMMARY ---
Discharge Summary Providers to ~ Discharge Summary Admission Diagnosis: LLE wound Hospital Course DATE OF ADMISSION: 04/09/25 DATE OF DISCHARGE:04/15/25 CBC testing done on April 15, 2025 WBC 7.5 hemoglobin 10.6 hematocrit 33.6 platelet count 371 sed rate 59, CMP done on April 15, 2025 sodium 142 po tassium 3.5 creatinine 0.87 GFR 74, hemoglobin A1c 5.2, procalcitonin 0.05, lactic acid 1.1. Blood culture showed no growth after five days. Echocardiogram.Conclusion Overall LVEF is 60-65%. Normal LV size and wall thickness. Overall systolic function is normal. RV is normal size and function. Trileaflet AV appears mildly sclerotic without stenosis. No insufficiency. Mild mitral annular calcification without stenosis. Trace regurgitation. Tricuspid valve is grossly normal in structure with trace regurgitation. Pulmonic valve is grossly normal in structure with physiologic insufficiency. Normal pericardium. No effusion. TIB/FIB 2 VWSFINDINGS/IMPRESSION: There is no evidence of acute fracture or dislocation. The visualized joint space is well maintained. Diffuse soft tissue swelling. There is no radiopaque foreign body. CTA ABDOMEN LOWER EXTR RUNOFFIMPRESSION: 1. No significant arterial stenoses are identified in the abdomen, pelvis, or bilateral lower extremities. There is 3-vessel runoff to the bilateral ankles. 2. 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 3. Cardiomegaly. 4. Nonobstructing right nephrolithiasis. 5. Postoperative changes of cholecystectomy. 6. Fecal retention in the colon suggestive of constipation. 7. Trace free fluid in the pelvis, likely physiologic. 8. Multiple left lower leg open wounds versus skin scarring. Subcutaneous edema of the bilateral lower legs is greater on the left and may be due to cellulitis, venous stasis, mild CHF, or other etiology. VL VENOUSImpression: No left femoropopliteal venous thrombosis. Nonspecific enlarged left inguinal lymph node measuring 1.4 x 3.5 cm Discharge Diagnosis\Comment: Cellulitis of the left lower extremity wound, Failed outpatient antibiotic therapy, Chronic nonhealing left lower extremity wound, Peripheral artery disease Polysubstance abuse , pain medication seeking behavior and chronic pain syndrome Operations\Procedures: eft lower extremity wound debridement on April 11, 2025 Consultants: , Dr. Gay Complications: None Condition on DC: Stable New Medications: Amox Tr/Potassium Clavulanate 875/125 MG (Augmentin 875/125 MG) 875 Mg-125 Mg Tablet 1 TAB PO BID for 7 Days, #14 TAB Ciprofloxacin HCl (Cipro) 500 Mg Tablet 1 TAB PO Q12H for 7 Days, #14 TAB Ibuprofen (Ibuprofen) 600 Mg Tablet 1 TAB PO Q8H for pain for 7 Days, #21 TAB 0 Refills with food Pantoprazole Sodium (Pantoprazole Sodium) 40 Mg Tablet.dr 40 MG PO BKF for 10 Days, #10 TAB.SR Changed Medications: Acetaminophen (Tylenol) 325 Mg Tablet 1 TAB PO Q8H PRN for pain or fever for 7 Days, #21 TAB (Changed from: QDAY PRN; 30; 30) Continued Medications: Methadone Hcl* (Dolophine*) 10 Mg Tablet 60 MG PO DAILY, TAB Discontinued Medications: [Ibuprofen 600] () MG PO Q6H PRN for pain Discharge Summary: 35-year-old female with past medical history of polysubstance abuse, chronic left lower extremity wound, presented to the ER with chief complaints of increasing pain and redness of the left lower extremity wound. # Cellulitis of the left lower extremity wound Failed outpatient antibiotic therapy Chronic nonhealing left lower extremity wound -she was recently prescribed doxycycline and cefpodoxime for cellulitis which she completed the course outpatient but still non-resolving infection -WBC 9.6, Lactic acid 1.1, procalcitonin 0.05 -previous wound cultures from December 2024 positive for Proteus and group B Streptococcus -MIGUEL A- negative, denies symptoms of IBS Plan - venous Doppler left lower extremity to ruled out DVT - on IV Zosyn 4.5 q.8h to cover for Pseudomonas, Gram-negative, anaerobic and vanco to cover for MRSA -will follow up on wound cultures, MRSA nasal swab, deescalate antibiotics based on cultures -CTA ABDOMEN LOWER EXTR RUNOFF result reviewed -consulted Dr Davis and Dr Gay -wound care to continue -pain management with Dawn and morphine not sufficient per nursing staff Dilaudid started 04/09-Patient was seen twice today in my visits. Care plan discussed with the patient's father and patient who is awake alert, All labs, diagnostic workup and discussed with patient All questions and queries answered to the best of my professional medical knowledge. We will continue with current antibiotic therapy and continue wound care treatment. I consulted Infectious Disease specialist Dr. Gay for this patient's case. Wound care team recommended surgical intervention so I left the message with Dr. Dominguez and requested surgical consultation. Somebody is helping patient in outpatient setting to find the housing. Patient's father feels that patient might need special plastic surgery. Patient do not want to go to [facility] as they do not respect her over there. In her last visit she left against medical advice in December 2024 from [facility]. Patient is currently on methadone for chronic opioid addiction . Nursing staff Annie feels patient needs stronger pain medications so Dilaudid ordered for pain control. substance abuse navigator consulted on this case and evaluated the patient. Continue to monitor patient's clinically. 04/10-Dr. Gay mentioned that he knows this patient from [facility] visit in in her last visit she left against medical advice just before she was about to go to OR. Dr. Dominguez consulted on this case and recommended wound debridement in a.m. 04/11- left lower extremity wound debridement today 04/12-Patient denied use of Meth even though it was positive in her urine drug screen ON 04/11/[address] Dominguez following the patient recommended to continue current wound care treatment 04/13- Wound VAC per Dr. Will Davis on Saturday 04/14- Dr. Alvarez rounded on this patient today and his consult note reviewed 04/15-wound VAC placed by wound care team and PO antibiotics Augmentin and ciprofloxacin recommended by Dr. Gay. Dr. Davis is okay to discharge the patient today. Peripheral artery disease -vascular Doppler done ruled out acute DVT -follow up on CTA aorta and lower extremities No significant arterial stenoses are identified in the abdomen, pelvis, or bilateral lower extremities. There is 3-vessel runoff to the bilateral ankles. -will follow up on lipid panel . hemoglobin A1c 5.0 Polysubstance abuse -patient is currently on opioid addiction with methadone, Nrusing staff Annie confirmed methadone dose with pharmacy -patient shows pain medication seeking behavior - Urine drug screen positive for fentanyl and meth, elevated BNP 551 Patient is feeling better she has been afebrile and getting discharged home in stable condition. Patient is seen and examined on the day of discharge. All questions and queries answered to the best of my professional medical knowledge. I heard patient's concerns and address appropriately. Patient was cleared by Physical therapy team for home discharge . group home manager Galina involved in patient's discharge plan. Discharge instructions provided to the [facility] at [facility] appointment - 04/18/25 at 9:30. Please show up on time with new patient referral packet completed. If you do not show, they will not see you again, so please show up. Thank you. please follow up with Dr Gay ,Dr Davis , PCP ,wound care in 1 week discharge. Patient is strongly advised to stop recreational drugs and risks explained. Patient needs follow-up with the methadone clinic for further continuation and refills of methadone. CBC SED RATE CMP AND PROCALCITONIN IN FIVE DAYS IN OUTPATIENT SETTING WITH PCP /URGENT CARE OR [facility] General-patient not in any acute distress, alert awake oriented, obese, chronically ill-appearing HEENT-atraumatic normocephalic, neck supple without elevated JVD, no thyromegaly or carotid bruit. No lymphadenopathy bilaterally. Eyes-no icterus or pallor seen in eyes Chest-clear to auscultation bilaterally, breathing nonlabored no tachypnea, no wheezing, no crepitation, no crackles. Heart-S1-S2 normal, regular heart rate no murmur Abdomen bowel sounds positive on auscultation, soft nondistended nontender no guarding, no rigidity Skin -dressing in place over large open nonhealing wound present over left lower extremity Neurology-grossly intact, nonfocal alert awake oriented Extremity- no pedal edema able to move all 4 extremities , wound vac in place over large open nonhealing wound present over left lower extremity Psychiatry - patient is not confused or agitated cooperated during physical examination *Problems/Diagnosis: (1) Non-healing surgical wound Status: Acute (2) Wound cellulitis Status: Acute Total Time Spent on D/C: > 30 Minutes Date of Service: Apr 15, 2025 Billing Provider: KASSANDRA GIRARD MD Common Visit Codes: 25163-OHO/OBS DISCH DAY >30min KASSANDRA GIRARD MD Apr 15, 2025 21:00
== END 2025-04-15 15:44 | disposition home health service (06) | DRG 383 ==
LOC: ER 20:23 → ED HOLD 04-09 01:30 → SUR 3N 04-09 05:18
PROVIDERS: ADMIT Internal Medicine Pulmonary Disease; ATTEND Internal Medicine
PROC: B4201ZZ Computerized Tomography (CT Scan) of Abdominal Aorta using Low Osmolar Contrast (ICD-10-PCS; 2025-04-09)
PROC: B4241ZZ Computerized Tomography (CT Scan) of Superior Mesenteric Artery using Low Osmolar Contrast (ICD-10-PCS; 2025-04-09)
PROC: B4281ZZ Computerized Tomography (CT Scan) of Bilateral Renal Arteries using Low Osmolar Contrast (ICD-10-PCS; 2025-04-09)
PROC: B42C1ZZ Computerized Tomography (CT Scan) of Pelvic Arteries using Low Osmolar Contrast (ICD-10-PCS; 2025-04-09)
PROC: B42H1ZZ Computerized Tomography (CT Scan) of Bilateral Lower Extremity Arteries using Low Osmolar Contrast (ICD-10-PCS; 2025-04-09)
PROC: B4211ZZ Computerized Tomography (CT Scan) of Celiac Artery using Low Osmolar Contrast (ICD-10-PCS; 2025-04-09)
PROC: B42H1ZZ Computerized Tomography (CT Scan) of Bilateral Lower Extremity Arteries using Low Osmolar Contrast (ICD-10-PCS; 2025-04-09)
PROC: 0JBP0ZZ Excision of Left Lower Leg Subcutaneous Tissue and Fascia, Open Approach (ICD-10-PCS; principal; 2025-04-11 14:54)
DX: L03.116 Cellulitis of left lower limb (principal); S81.802A Unspecified open wound, left lower leg, initial encounter; F11.20 Opioid dependence, uncomplicated; I73.9 Peripheral vascular disease, unspecified; G89.4 Chronic pain syndrome; F19.10 Other psychoactive substance abuse, uncomplicated; X58.XXXA Exposure to other specified factors, initial encounter; Y93.89 Activity, other specified; Y99.8 Other external cause status; Y92.89 Other specified places as the place of occurrence of the external cause; Z91.040 Latex allergy status; Z91.09 Other allergy status, other than to drugs and biological substances; Z76.5 Malingerer [conscious simulation]
CPT/HCPCS: 36415; 73590; 75635; 80048; 80053; 80202; 80305; 81001; 82948; 83036; 83605; 83735; 83880; 84145; 84703; 85025; 85610; 85651; 85730; 86140; 87040; 87081; 93005; 93306; 93971; 97110; 97161; 97530; 97535; 99291; A4618; A4649; A6154; A6209; A6223; A6243; A6253; A6258; A6260; A6446; A6449; A7000; G0378; J0131; J1100; J1171; J1200; J1650; J2250; J2405; J2543; J2704; J2710; J2919; J3010; J3373; J3490; J7030; Q0163; Q9967